=== PATIENT | female | born 1945 | race Caucasian/White ===

== ENCOUNTER 2023-12-10 13:20 | Observation (INO) | payer MEDICARE, OTHER ==
[~2023-12-10] VITALS: Ht 165.1 cm; Wt 72.8 kg
[~2023-12-10 13:20] MED LIST: ALBU8.5H17 IH; CHOL2000 PO; DOXY25TA58 PO; FURO-150 PO; GLIP5TAB23 PO; HYDR-4353 PO; LEVO175T2 PO; LOP25T PO; METF-438 PO; METO-467 PO; POTA-192 PO; SIMV-342 PO; SPIIN INH; TRIA15OI9 TP
[2023-12-10 14:09] LABS: ALBUMIN 3.7 G/DL (3.4-5.0); ANION GAP 11 (8-16); BLOOD UREA NITROGEN 33 MG/DL (7-18); BUN/CREATININE RATIO 19.8 (10.0-20.0); CALCIUM 8.8 MG/DL (8.5-10.1); CHLORIDE 105 MMOL/L (99-107); CREATININE 1.67 MG/DL (0.40-0.90); GLUCOSE 127 MG/DL (70-104); POTASSIUM 4.4 MMOL/L (3.5-5.1); PRO BRAIN NATRIURETIC PEPTIDE 2534 PG/ML (0-450); SODIUM 139 MMOL/L (135-145); TOTAL CARBON DIOXIDE 22.8 MMOL/L (24-32); eCRCL 25 ML/MIN; eGFR 30 ML/MIN
[2023-12-10 15:12] LABS: BASOPHILS # (AUTO) 0.1 X10'3 (0-0.2); BASOPHILS % (AUTO) 1.1 % (0-1); EOSINOPHILS # (AUTO) 0.3 X10'3 (0-0.9); EOSINOPHILS % (AUTO) 3.4 % (0-6); HEMATOCRIT 33.5 % (35.0-45.0); HEMOGLOBIN 10.8 g/dl (12.0-16.0); LYMPHOCYTES # (AUTO) 1.3 X10'3 (1.1-4.8); LYMPHOCYTES % (AUTO) 16.2 % (21-51); MEAN CORPUSCULAR HEMOGLOBIN 26.2 PG (27.0-31.0); MEAN CORPUSCULAR HGB CONC 32.2 g/dL (33.0-36.5); MEAN CORPUSCULAR VOLUME 81.5 FL (78-98); MEAN PLATELET VOLUME 8.2 FL (7.4-10.4); MONOCYTES # (AUTO) 0.6 X10'3 (0-0.9); MONOCYTES % (AUTO) 6.8 % (2-12); NEUTROPHILS # (AUTO) 5.9 X10'3 (1.8-7.7); NEUTROPHILS % (AUTO) 72.5 % (42-75); PLATELET COUNT 308 X10'3 (140-440); RED BLOOD COUNT 4.11 X10'6 (4.20-5.60); RED CELL DISTRIBUTION WIDTH 15.9 % (11.5-14.5); WHITE BLOOD COUNT 8.2 X10'3 (4.5-11.0)
[2023-12-10] MEDS ORDERED: furosemide 10 MG/1 ML 10ml inj IV ONE (16:40)
[2023-12-10] MEDS: ipratropium/albuterol 3ml nebule NEB ONE (17:03)
[2023-12-10 17:04] VITALS: PULSE 73; RESP 18; O2SAT 95
[2023-12-10] MEDS: furosemide 40mg/4ml inj IV ONE (17:31)
[2023-12-10] MEDS: methylPREDNISolone sod succ 125mg/2ml vial IV ONE (17:42)
[2023-12-10] MEDS ORDERED: magnesium Cl slow-release 64mg tablet PO PRN (18:30)
[2023-12-10] MEDS ORDERED: ondansetron/PF 4mg/2ml inj IV PRN (18:30)
[2023-12-10] MEDS ORDERED: potassium Cl 40MEQ/1/2NS 520ml 520 ML IV PRN (18:30)
[2023-12-10] MEDS ORDERED: magnesium 2GM in 50ml NS 50 ML IV PRN (18:30)
[2023-12-10] MEDS ORDERED: potassium Cl 20 mEq SR tablet PO PRN ×2 (18:30)
[2023-12-10] MEDS ORDERED: acetaminophen 325mg tablet PO PRN (18:30)
[2023-12-10] MEDS ORDERED: mag hydrox/Alum hydrox/simeth 30ml oral suspension PO PRN (18:30)
[2023-12-10] MEDS ORDERED: magnesium hydroxide 30ml (MOM) UD suspension PO PRN (18:30)
[2023-12-10] MEDS ORDERED: magnesium 4gm in 100ml NS 100 ML IV PRN (18:30)
[2023-12-10] MEDS ORDERED: albuterol 2.5 MG/3 ML nebule NEB PRN (18:50)
[2023-12-10] MEDS ORDERED: ipratropium/albuterol 3ml nebule NEB PRN (18:50)
[2023-12-10 19:07] LABS: HEMOGLOBIN A1C 5.7 % (4.5-6.2)
[2023-12-10 19:59] LABS: BILIRUBIN,URINE NEGATIVE (Neg); CLARITY,URINE CLEAR (Clear); COLOR,URINE YELLOW (Yellow); GLUCOSE, URINE NEGATIVE (Neg); KETONES,URINE NEGATIVE (Neg); LEUKOCYTE ESTERASE ,URINE NEGATIVE (Neg); NITRITES, URINE NEGATIVE (Neg); OCCULT BLOOD,URINE NEGATIVE (Neg); PROTEIN,URINE NEGATIVE (Neg); UROBILINOGEN,URINE 0.2 E.U/dL (0.2-1.0)
[2023-12-10] MEDS: docusate sod 100mg capsule PO SCH (20:00)
[2023-12-10] MEDS: K and/or MAG REPLACEMENT MC SCH (20:00)
[2023-12-10 20:18] LABS: UA COLLECTION TYPE NON-SPECIFIED
[2023-12-10 21:17] VITALS: PULSE 81; RESP 17; O2SAT 93
[2023-12-10] MEDS ORDERED: DEXTROSE 15 GM of carb/4 tabs (each vial/BOTTLE has 4 tablets) PO PRN ×2 (21:55)
[2023-12-10] MEDS ORDERED: dextrose 50%-water 50ml dispensing syringe IV PRN ×2 (21:55)
[2023-12-10] MEDS ORDERED: glucagon, human recombinant 1mg kit SUBCUT PRN (21:55)
[2023-12-10] MEDS ORDERED: insulin Lispro (HumaLOG) vial - multi-dose SQ SCH (21:55)
[2023-12-10] MEDS: heparin, porcine 5000 units/ml vial SQ SCH (22:54)
[2023-12-11] VITALS (9 sets, daily range): BP systolic 101–142; BP diastolic 37–99; PULSE 69–100; RESP 15–22; TEMP 97.2–98; O2SAT 92–100
[2023-12-11 06:31] LABS: BASOPHILS % (AUTO) 0.6 % (0-1); EOSINOPHILS % (AUTO) 0.1 % (0-6); HEMATOCRIT 32.9 % (35.0-45.0); HEMOGLOBIN 10.8 g/dl (12.0-16.0); LYMPHOCYTES # (AUTO) 0.7 X10'3 (1.1-4.8); LYMPHOCYTES % (AUTO) 18.5 % (21-51); MEAN CORPUSCULAR HEMOGLOBIN 26.4 PG (27.0-31.0); MEAN CORPUSCULAR HGB CONC 32.8 g/dL (33.0-36.5); MEAN CORPUSCULAR VOLUME 80.3 FL (78-98); MEAN PLATELET VOLUME 8.2 FL (7.4-10.4); MONOCYTES # (AUTO) 0.1 X10'3 (0-0.9); MONOCYTES % (AUTO) 2.5 % (2-12); NEUTROPHILS # (AUTO) 2.9 X10'3 (1.8-7.7); NEUTROPHILS % (AUTO) 78.3 % (42-75); PLATELET COUNT 312 X10'3 (140-440); RED BLOOD COUNT 4.09 X10'6 (4.20-5.60); RED CELL DISTRIBUTION WIDTH 15.5 % (11.5-14.5); WHITE BLOOD COUNT 3.7 X10'3 (4.5-11.0)
[2023-12-11 06:55] LABS: ALANINE AMINOTRANSFERASE 13 U/L (12-78); ALBUMIN 3.4 G/DL (3.4-5.0); ALBUMIN/GLOBULIN RATIO 0.8 (1.1-1.5); ALKALINE PHOSPHATASE 89 IU/L (46-116); ANION GAP 11 (8-16); ASPARTATE AMINO TRANSFERASE 16 U/L (10-37); BILIRUBIN,TOTAL 0.4 MG/DL (0.1-1.0); BLOOD UREA NITROGEN 35 MG/DL (7-18); CALCIUM 8.7 MG/DL (8.5-10.1); CHLORIDE 103 MMOL/L (99-107); CHOL/HDL RATIO 2.8 (0.00-4.99); CHOLESTEROL 212 MG/DL (0-200); CREATININE 1.67 MG/DL (0.40-0.90); FREE T4 (FREE THYROXINE) 1.59 NG/DL (0.73-1.40); GLUCOSE 136 MG/DL (70-104); HDL CHOLESTEROL 77 MG/DL (35-60); LDL CHOLESTEROL 102 MG/DL (50-100); PHOSPHORUS 4.7 MG/DL (2.3-4.5); SODIUM 139 MMOL/L (135-145); THYROID STIMULATING HORMONE 0.05 ulU/ml (0.34-4.50); TOTAL CARBON DIOXIDE 24.9 MMOL/L (24-32); TOTAL PROTEIN 7.6 G/DL (6.4-8.2); TRIGLYCERIDES 107 MG/DL (20-135); eCRCL 25 ML/MIN; eGFR 30 ML/MIN
[2023-12-11] MEDS: metoprolol tartrate 50mg tablet PO SCH (07:11)
[2023-12-11] MEDS: levoTHYROXINE 175mcg tablet PO SCH (07:12)
[2023-12-11] MEDS: amLODIPine 5mg tablet PO SCH (07:13)
[2023-12-11] MEDS: furosemide 40mg/4ml inj IV SCH (07:15)
[2023-12-11] MEDS: normal saline 1000ml 1,000 ML IV SCH (20:39)
[2023-12-11] MEDS: metoprolol tartrate 25mg tablet PO SCH (20:47)
[2023-12-11] MEDS: insulin glargine (Lantus) pen - multi-dose SQ SCH (21:00)
[2023-12-12] VITALS (8 sets, daily range): BP systolic 119–149; BP diastolic 44–69; PULSE 67–97; RESP 14–22; TEMP 98–98.5; O2SAT 93–98
[2023-12-12] MEDS: levoTHYROXINE 75mcg tablet PO SCH (07:47)
[2023-12-12 08:06] LABS: BASOPHILS # (AUTO) 0.1 X10'3 (0-0.2); BASOPHILS % (AUTO) 1.1 % (0-1); EOSINOPHILS # (AUTO) 0.1 X10'3 (0-0.9); EOSINOPHILS % (AUTO) 2.2 % (0-6); HEMATOCRIT 34.6 % (35.0-45.0); HEMOGLOBIN 11.2 g/dl (12.0-16.0); LYMPHOCYTES # (AUTO) 1.7 X10'3 (1.1-4.8); LYMPHOCYTES % (AUTO) 28.1 % (21-51); MEAN CORPUSCULAR HEMOGLOBIN 26.2 PG (27.0-31.0); MEAN CORPUSCULAR HGB CONC 32.3 g/dL (33.0-36.5); MEAN CORPUSCULAR VOLUME 81.2 FL (78-98); MEAN PLATELET VOLUME 8.6 FL (7.4-10.4); MONOCYTES # (AUTO) 0.6 X10'3 (0-0.9); MONOCYTES % (AUTO) 10.5 % (2-12); NEUTROPHILS # (AUTO) 3.6 X10'3 (1.8-7.7); NEUTROPHILS % (AUTO) 58.1 % (42-75); PLATELET COUNT 347 X10'3 (140-440); RED BLOOD COUNT 4.26 X10'6 (4.20-5.60); RED CELL DISTRIBUTION WIDTH 15.9 % (11.5-14.5); WHITE BLOOD COUNT 6.2 X10'3 (4.5-11.0)
[2023-12-12 08:34] LABS: ALANINE AMINOTRANSFERASE 14 U/L (12-78); ALBUMIN 3.7 G/DL (3.4-5.0); ALBUMIN/GLOBULIN RATIO 0.9 (1.1-1.5); ALKALINE PHOSPHATASE 88 IU/L (46-116); ANION GAP 10 (8-16); ASPARTATE AMINO TRANSFERASE 17 U/L (10-37); BILIRUBIN,TOTAL 0.5 MG/DL (0.1-1.0); BLOOD UREA NITROGEN 45 MG/DL (7-18); BUN/CREATININE RATIO 25.3 (10.0-20.0); CALCIUM 8.5 MG/DL (8.5-10.1); CHLORIDE 104 MMOL/L (99-107); CREATININE 1.78 MG/DL (0.40-0.90); GLUCOSE 85 MG/DL (70-104); MAGNESIUM 2.1 MG/DL (1.5-2.4); PHOSPHORUS 3.8 MG/DL (2.3-4.5); POTASSIUM 3.7 MMOL/L (3.5-5.1); SODIUM 140 MMOL/L (135-145); TOTAL CARBON DIOXIDE 25.7 MMOL/L (24-32); TOTAL PROTEIN 7.7 G/DL (6.4-8.2); eCRCL 23 ML/MIN; eGFR 27 ML/MIN
[2023-12-12] MEDS: LORazepam 1 MG tablet PO ONE (10:27)
[2023-12-12] MEDS ORDERED: LEVO75TA7 PO (13:47)
[2023-12-12] MEDS ORDERED: LOP25T PO (13:47)
== END 2023-12-12 14:18 | disposition home health service (06) ==
LOC: ER 13:20 → ED HOLD 18:53 → EDBEDREQ 22:47 → ORTHO 4S 23:31
PROVIDERS: ADMIT Family Medicine; ATTEND Family Medicine
DX: R55 Syncope and collapse (principal); Z20.822 Contact with and (suspected) exposure to COVID-19; N17.9 Acute kidney failure, unspecified; I11.0 Hypertensive heart disease with heart failure; I50.32 Chronic diastolic (congestive) heart failure; E03.9 Hypothyroidism, unspecified; E11.9 Type 2 diabetes mellitus without complications; J44.9 Chronic obstructive pulmonary disease, unspecified; I49.3 Ventricular premature depolarization; E05.00 Thyrotoxicosis with diffuse goiter without thyrotoxic crisis or storm; Z90.49 Acquired absence of other specified parts of digestive tract; Z90.710 Acquired absence of both cervix and uterus; Z79.899 Other long term (current) drug therapy
CPT/HCPCS: 36415; 70450; 70544; 70547; 70551; 71045; 80048; 80053; 80061; 81003; 82948; 83036; 83735; 83880; 84100; 84145; 84439; 84443; 84484; 85025; 87081; 87502; 87503; 87811; 93005; 94760; 96361; 96372; 96374; 96375; 96376; 97116; 97161; 97530; 99285; G0378; J1644; J1940; J2930; J7030; J1815

== ENCOUNTER 2025-04-03 15:20 | Emergency (ER) | payer MEDICARE, OTHER ==
[~2025-04-03] VITALS: Ht 162.6 cm; Wt 62.5 kg
[~2025-04-03 15:20] MED LIST changes: -LEVO175T2 PO; +LEVO75TA7 PO; -METO-467 PO
[2025-04-03 15:21] VITALS: TEMP 98.5
[2025-04-03] MEDS: LIDOcaine 1% W/epiNEPHrine 1:100,000 20ml vial SQ ONE (15:36)
--- NOTE | 2025-04-03 15:36 | Physician Documentation ---
History of Present Illness ~ Chief Complaint: Mechanical Fall Stated Complaint: FALL Time Seen by MD: 15:22 Primary Medical Doctor: SHERLY; JEN WARE GRP Source: patient, EMS, EMS notes reviewed Mode of Arrival: EMS Exam Limitations: other (DEMENTIA) HPI Chief Complaint: Fall, head injury Caveat: Dementia Independent Historians: Paramedics History of Present Illness: Patient is a 80-year-old woman who was brought in from home by paramedics after having fallen and hitting her head on the cement. Patient was walking into the house with groceries when she missed the last step falling onto her right forehead. Patient denies any loss of consciousness. Patient would not tolerate a C collar prior to arrival. However she is not complaining of any neck pain. Patient denies any nausea or vomiting. Patient complains of the moderate headache. Patient denies any pain in her extremities or hips. Patient denies passing out or losing consciousness. Patient denies being on blood thinners. Review of systems: All systems were reviewed and are negative except for what is indicated in the history of present illness. Past Medical History: Dementia, HTN, COPD, CHF, anemia, Graves disease Past Surgical History: Noncontributory Social History: , no tobacco use, no alcohol use, no drug use Medications: Reviewed as documented Nursing Notes Allergies: Reviewed as documented in Nursing Notes Tetanus within 5 Years?: No Medication Reconciliation Allergies: Coded Allergies: No Known Allergies (Unverified , 09/22/14) Scheduled Albuterol Sulfate (Proair Hfa), 2 PUFFS IH QID, (Reported) Cholecalciferol (Vitamin D3) (Vitamin D), 1 CAP PO DAILY, (Reported) Doxylamine Succinate (Unisom), 1 TAB PO HS, (Reported) Furosemide (Lasix), 20 MG PO DAILY Glipizide (Glipizide), 7.5 MG PO DAILY, (Reported) Hydrocodone Bit/Acetaminophen ([place] 10-325 Tablet), 1 TABLET PO BID, (Reported) Levothyroxine Sodium (Levothyroxine Sodium), 150 MCG PO DAILY@07 Metformin HCl (Metformin HCl), 1 TABLET PO BID, (Reported) Metoprolol Tartrate* (Lopressor tablet*), 25 MG PO BID Potassium Chloride (Klor-Con), 1 TABLET PO DAILY Simvastatin (Zocor), 1 TABLET PO DAILY, (Reported) Tiotropium [place] (SPIRIVA inhaler), 1 CAP INH DAILY, (Reported) Scheduled PRN Triamcinolone Acetonide (Triamcinolone Acetonide), 1 APPLIC TP PRN PRN for itching, (Reported) Past Medical History Past Medical History: Congestive Heart Failure, Hypertension, COPD, Pneumonia, Anemia, Diabetes, Graves' Disease, Cellulitis Past Surgical History: appendectomy, cholecystectomy, hysterectomy Patient History: ([place]) Myocardial infarction FATHER, , Age: 50's - 60, Cause: Heart attack, Onset:50's - 60 Cardiac arrest FATHER, , Age: 50's - 60, Cause: Heart attack, Onset:50's - 60 No Family History of: (CVA) Cerebrovascular accident Other Past Family History: NONE Alcohol Use: None Drug Use: none Lives with: Spouse Lives In: Home Review of Systems All Other Systems at this time: Reviewed and Negative ROS Patient denies any other acute symptoms other than above. All other systems are negative Physical Exam Vital Signs: RN Vital Signs have been reviewed: Yes, Temperature: 98.5, Source: Temporal, Heart Rate: 87, Respiratory Rate: 17, BP: 143/63, Pulse Oximetry: 95, Weight: 62.510 Oxygen Flow Rate: 2.0 Pulse Oximetry Reflects: adequate oxygenation Physical Exam General Appearance: Mild distress HEENT: Normal OP, moist oral mucosa, PERRL, EOMI, macerated irregular full- thickness laceration to the right forehead, bleeding controlled, no foreign bodies identified, swelling and ecchymosis down around the eye. No facial bony tenderness Neck: supple, normal ROM, trachea midline, no step-offs, no midline tenderness Pulmonary: No respiratory distress, CTA, BS equal Cardiac: RRR, no murmur, rub or gallop, GI: nondistended, soft, nontender, normal bowel sounds, no guarding, no rebound Extremities: normal ROM, chronic 1+ nonpitting lower extremity edema, non- tender, extremities appear atraumatic Skin: intact, dry, warm, no rashes, skin over the legs is dry and flaky and pink Neuro: AAOx3, speech is clear, no focal motor weakness Psych: normal affect, good eye contact, no apparent hallucination, normal speech Procedures Procedures Complex Laceration Repair by Ashkan Marcelo NP Complex stellate laceration measuring 6 cm total to right forehead with galea involvement. Procedure explained and verbal consent obtained. Area was thoroughly irrigated by nursing staff using sterile saline. No foreign body was appreciated. Adequate anesthesia was obtained utilizing 7 mL of 1% lidocaine with epinephrine infiltrated locally. The area was prepped and draped. A 1 cm round perforation of the galea was partially approximated utilizing 4 simple interrupted subcutaneous sutures utilizing 5-0 Vicryl Skin was well approximated utilizing 9 simple interrupted cutaneous sutures utilizing 5-0 Ethilon Patient tolerated procedure well with no complications Progress Results/Orders Results/Orders Orders - CASSY ELENA MD Urinalysis, Cult If Indicated (04/03/25 15:23) Ct Cervical Spine (04/03/25 15:23) Ct Facial Bones/Soft Tissue (04/03/25 15:23) Ct Head (04/03/25 15:23) Completed Orders - CASSY ELENA MD Cbc/Diff (04/03/25 15:23) Pt Inr (04/03/25 15:23) PTT (04/03/25 15:23) Ct Cervical Spine (04/03/25 15:23) Ct Facial Bones/Soft Tissue (04/03/25 15:23) Ct Head (04/03/25 15:23) BMP (04/03/25 15:23) Lidocaine 1% W/Epi 1:100,000 (Xylocaine (04/03/25 15:30) Vital Signs 04/03/25 04/03/25 04/03/25 15:21 15:29 16:17 Temp 98.5 Pulse 87 68 Resp 17 17 17 B/P (MAP) 143/63 141/68 (92) Pulse Ox 95 95 O2 Flow Rate 2.0 1.0 Laboratory Tests Test 04/03/25 15:25 04/03/25 15:50 Sodium Level 141 Potassium Level 4.3 Chloride Level 106 Carbon Dioxide Level 22.0 L Anion Gap 13 Blood Urea Nitrogen 33 H Creatinine 1.96 H Estimated GFR/1.73 m2 24 BUN/Creatinine Ratio 16.8 Glucose Level 135 H Calcium Level 8.9 Albumin 3.3 L Chemistry Comments White Blood Count 9.0 Red Blood Count 3.46 L Hemoglobin 8.8 L Hematocrit 27.1 L Mean Corpuscular Volume 78.3 Mean Corpuscular Hemoglobin 25.4 L Mean Corpuscular Hemoglobin Concent 32.4 L Red Cell Distribution Width 18.7 H Platelet Count 459 H Mean Platelet Volume 7.3 L Neutrophils (%) (Auto) 71.2 Lymphocytes (%) (Auto) 17.3 L Monocytes (%) (Auto) 7.2 Eosinophils (%) (Auto) 3.4 Basophils (%) (Auto) 0.9 Neutrophils # (Auto) 6.4 Lymphocytes # (Auto) 1.5 Monocytes # (Auto) 0.6 Eosinophils # (Auto) 0.3 Basophils # (Auto) 0.1 CBC Comment Platelet Estimate Increased Red Blood Cell Morphology Perf Polychromasia 1+ Hypochromasia 1+ Basophilic Stippling Anisocytosis 2+ Microcytosis 1+ Prothrombin Time 10.2 INR International Normalized Ratio 1.0 Activated Partial Thromboplast Time 28 Coagulation Comments Medical Decision Making Findings Differential diagnosis includes but is not limited to: Medic brain injury, minor closed head injury, facial laceration, facial fractures, cervical fracture, extremity injuries, contusions, fractures Head CT without IV contrast, indication: Head trauma Impression: 1. Right frontal scalp edema and laceration without underlying cranial fracture. 2. Chronic ischemic changes without evidence of acute intracranial process. 3. Empty sella incidentally noted. CT cervical spine without IV contrast, indication: Head trauma Impression: 1. No fracture of the cervical spine. 2. 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 Consider follow-up noncontrast MRI of the cervical spine for better characterization on an outpatient basis, as there may be mass effect on the cervical spinal cord at the C3-C4 level. 3. Multilevel significant neural foraminal stenosis as detailed above. This would also be better characterized with noncontrast MRI. 4. Carotid atherosclerosis. 5. Ground-glass opacity in the right lung apex, not fully imaged here. Facial bones CT without IV contrast, indication: Facial/head trauma Impression: Limited examination secondary to patient motion artifact. No acute facial fractures. Laboratory data independent interpretation: CBC: Moderate anemia with a hemoglobin of 8.8 CMP: Chronic kidney disease with a creatinine of 1.96 Urinalysis: Emergency department course/medical decision-making: Patient presents after having fallen at home onto her head hitting the pavement. Patient's mental status appears to be at baseline. Patient is neurologically intact. Findings on the cervical CT of the C-spine are incidental. PATIENT TO FOLLOW UP WITH YOUR PRIMARY CARE DOCTOR FOR THESE FINDINGS. PATIENT HAS NOT BEEN HAVING ANY ACUTE NEUROLOGICAL SYMPTOMS. Plain CT OF THE HEAD is showing no evidence of intracranial hemorrhage or traumatic brain injury. Forehead laceration is repaired without complication. Patient to follow up with her primary care doctor or ER for suture removal in 10-12 days. Consultation/communications: Departure Time of Disposition: 17:32 Disposition: 01 HOME / SELF CARE / HOMELESS Impression: Primary Impression: Closed head injury Qualified Codes: S09.90XA - Unspecified injury of head, initial encounter Additional Impression: 6 cm forehead, complex repair Condition: Improved Discharge Instructions: Facial Laceration, [id number], Fall Prevention in the Home, Adult, [id number] Additional Instructions: APPLY COLD COMPRESSES/ICE PACKS TO THE AREAS OF INJURY. FOLLOW UP WITH YOUR PRIMARY CARE DOCTOR OR RETURN TO THE ER FOR YOUR SUTURES TO BE REMOVED IN 10-12 DAYS. RETURN TO THE ER IF YOU HAVE ANY NEW OR ACUTE SYMPTOMS. Education Educated: Patient Educated regarding: diagnosis, treatment Signature Scribe Signature: No scribe Attestation: No scribe CASSY ELENA MD Apr 03, 2025 15:36 ASHKAN MARCELO Apr 03, 2025 17:25
[2025-04-03 15:41] LABS: CREATININE 1.96 MG/DL (0.40-0.90); TOTAL CARBON DIOXIDE 22.0 MMOL/L (24-32); eCRCL 19 ML/MIN; eGFR 24 ML/MIN
--- NOTE | 2025-04-03 15:53 | RADIOLOGY REPORT ---
EXAM: CT CT HEAD HISTORY: head trauma COMPARISON: MR MRI HEAD on DOS: 12/12/23, CT CT HEAD on DOS: 12/10/23 TECHNIQUE: Noncontrast axial CT images of the head were performed. Sagittal and coronal reformatted i mages were obtained. This CT exam was performed using 1 or more of the following dose reduction techn iques: Automated exposure control, adjustment of the mA and/or kv according to patient size, or the u se of iterative reconstruction techniques. Radiation Dose: CTDI volume is 52.82 mGy. Dose-length product is 887.83 mGy*cm FINDINGS: There is moderate to severe decreased attenuation in the periventricular and bicerebral white matter. No intracranial hemorrhage, mass, midline shift, hydrocephalus, or evidence of acute large vessel in farct. The sella is empty. The optic globes are proptotic, stable. The partially-visualized paranasa l sinuses are clear. The bilateral mastoid air cells and middle ear spaces are clear. No cranial frac ture. There is right frontal supraorbital scalp edema and laceration. IMPRESSION: 1. Right frontal scalp edema and laceration without underlying cranial fracture. 2. Chronic ischemic changes without evidence of acute intracranial process. 3. Empty sella incidentally noted.
[2025-04-03 16:01] LABS: MEAN PLATELET VOLUME 7.3 FL (7.4-10.4); RED CELL DISTRIBUTION WIDTH 18.7 % (11.5-14.5)
[2025-04-03 16:17] VITALS: BP 141/68; PULSE 68; RESP 17; O2SAT 95
[2025-04-03 16:19] LABS: PLATELET ESTIMATE INCREASED
[2025-04-03 16:22] LABS: APTT 28 SECONDS (22-32); INR 1.0 INR
--- NOTE | 2025-04-03 16:45 | RADIOLOGY REPORT ---
EXAM: CT CT CERVICAL SPINE INDICATION: head trauma EXAM DATE: 04/03/2025 03:37 PM COMPARISON: None TECHNIQUE: Noncontrast axial CT images of the cervical spine were performed. Sagittal and coronal ref ormatted images were obtained. Radiation optimization: All CT scans at this facility use at least one of these dose optimization techniques: automated exposure control mA and/or kV adjustment per patie nt size (includes targeted exams where dose is matched to clinical indication) or iterative reconstr uction. Radiation Dose Information: CT Dose: CTDI volume is 22.93 mGy. Dose-length product is 398.42 mGy*cm FINDINGS: No fracture or listhesis of the cervical spine. The cervical spinal canal is congenitally narrow. The re is moderate degenerative disc disease and advanced facet arthropathy. There is fsyb-rx-hhgbjsfe sp inal canal stenosis at C3-C4. There is mild spinal canal stenosis at other levels. There is significa nt neural foraminal stenosis at C2-C3 on the left, C3-C4 bilaterally, C4-C5 on the right, C6-C7 on th e right. There are thick atherosclerotic calcifications of the bilateral carotid bulbs. There is a le ft thyroid calcified nodule. There is mild patchy ground-glass opacity in the right lung apex, not fu lly imaged here. IMPRESSION: 1. No fracture of the cervical spine. 2. 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 Consider follow-up noncontrast MRI of the cervical spine for better characterization on an outpat ient basis, as there may be mass effect on the cervical spinal cord at the C3-C4 level. 3. Multilevel significant neural foraminal stenosis as detailed above. This would also be better hardik acterized with noncontrast MRI. 4. Carotid atherosclerosis. 5. Ground-glass opacity in the right lung apex, not fully imaged here.
--- NOTE | 2025-04-03 17:13 | RADIOLOGY REPORT ---
HISTORY: head trauma TECHNIQUE: Nonenhanced axial images through the facial bones with coronal and sagittal MPR. Radiation Dose Information: CT Dose: CTDI volume is 55 mGy. Dose-length product is 974 mGy*cm COMPARISON: None FINDINGS: Mandible: Unremarkable Maxilla: Unremarkable Zygomatic arches: Unremarkable Nasal bone: Unremarkable Orbits: Unremarkable Sinuses: Clear Facial swelling: None IMPRESSION: Limited examination secondary to patient motion artifact. No acute facial fractures. Radiation optimization: All CT scans at this facility use at least one of these dose optimization sumeet hniques: automated exposure control mA and/or kV adjustment per patient size (includes targeted exam s where dose is matched to clinical indication) or iterative reconstruction.
== END 2025-04-03 20:51 | disposition home or self-care (01) ==
LOC: ER 15:20
DX: S01.81XA Laceration without foreign body of other part of head, initial encounter (principal); F03.90 Unspecified dementia, unspecified severity, without behavioral disturbance, psychotic disturbance, mood disturbance, and anxiety; I13.0 Hypertensive heart and chronic kidney disease with heart failure and stage 1 through stage 4 chronic kidney disease, or unspecified chronic kidney disease; E11.22 Type 2 diabetes mellitus with diabetic chronic kidney disease; N18.9 Chronic kidney disease, unspecified; I50.9 Heart failure, unspecified; J44.9 Chronic obstructive pulmonary disease, unspecified; Z90.710 Acquired absence of both cervix and uterus; W10.9XXA Fall (on) (from) unspecified stairs and steps, initial encounter; Y92.009 Unspecified place in unspecified non-institutional (private) residence as the place of occurrence of the external cause; Y93.01 Activity, walking, marching and hiking; Y99.8 Other external cause status
CPT/HCPCS: 12014; 36415; 70450; 70486; 72125; 80048; 85025; 85610; 85730; 99284; A6402; J7030; Z7610; 85008; A6449

== ENCOUNTER 2025-08-27 23:31 | Inpatient (IN) | payer MEDICARE, OTHER ==
[~2025-08-27] VITALS: Ht 167.6 cm; Wt 83.0 kg
--- NOTE | 2025-08-27 23:51 | ELECTROCARDIOGRAPH REPORT ---
[facility] Test Date: 2025-08-27 Test Time: 23:49:29 Pat Name: BEATRIZ BANKS Department: [facility]- Patient ID: [facility]-[id number] Room: Gender: F Iron Caster: : 1945 Requested By: EMERSON MCKENNA Order Number: [id number] Reading MD: Dr. Emerson Mckenna Measurements Intervals [place] Rate: 87 P: 119 MA: 172 QRS: 165 QRSD: 106 T: -10 QT: 381 QTc: 459 Interpretive Statements Sinus rhythm Low voltage, precordial leads Probable right ventricular hypertrophy Borderline T abnormalities, diffuse leads Baseline wander in lead(s) I,V1 Electronically Signed On 08-28-2025 1:27:[address] Emerson Mckenna Please click the below link to view image of tracing.
[2025-08-28] VITALS (24 sets, daily range): BP systolic 103–125; BP diastolic 41–63; PULSE 87–103; RESP 15–25; TEMP 96.6–98.2; O2SAT 90–98
--- NOTE | 2025-08-28 01:00 | RADIOLOGY REPORT ---
CHEST RADIOGRAPH Indication: CHEST PAIN Technique: Single frontal view of the chest was obtained COMPARISON: DI CHEST,SINGLE VIEW on DOS: 12/10/23 FINDINGS: Cardiac silhouette is enlarged. Mild prominence of the pulmonary vasculature. No dense focal airspace disease. No significant pleural effusions. Bones and soft tissues demonstrate no significant abnormality. IMPRESSION: Cardiomegaly with pulmonary venous congestion.
[2025-08-28 01:01] LABS: MEAN PLATELET VOLUME 7.3 FL (7.4-10.4); RED CELL DISTRIBUTION WIDTH 22.0 % (11.5-14.5)
[2025-08-28] MEDS: diazepam inj 5 MG/ML inj. IV ONE ×2 (01:07→18:44)
[2025-08-28 01:23] LABS: CREATININE 3.66 MG/DL (0.40-0.90); TOTAL CARBON DIOXIDE 18.3 MMOL/L (24-32); eCRCL 11 ML/MIN; eGFR 12 ML/MIN
[2025-08-28 01:30] LABS: APTT 32 SECONDS (22-32); INR 1.0 INR
--- NOTE | 2025-08-28 01:37 | Physician Documentation ---
History of Present Illness ~ Chief Complaint: Shortness of Breath Stated Complaint: SOB Time Seen by MD: 23:42 OK to notify your PCP?: Yes Primary Medical Doctor: SHERLY; JEN WARE GRP Source: patient, RN/MD, EMS, RN notes reviewed, EMS notes reviewed, old records Mode of Arrival: EMS Exam Limitations: no limitations HPI This patient is a full code. History is very limited patient states she is short of breath and has been occurring for more than a day otherwise history is obtained from EMS. Has been was contacted and confirmed that she wants everything done including compressions and intubation. Patient also has end- stage dementia. Review of medical records shows the patient has diuretics albuterol pain medications thyroid medications beta blockers potassium supplementation and Kenalog ointment for her skin most likely she has no reports of cellulitis her lower extremities are weeping with multiple ulcers. She is having short shallow breath sounds moaning in pain complaining of shortness of breath. Denies chest pain. Medication Reconciliation Allergies: Coded Allergies: Sulfa (Sulfonamide Antibiotics) (Verified Allergy, Unknown, 08/28/25) per EMS sulfamethoxazole (Verified Allergy, Unknown, 08/28/25) trimethoprim (Verified Allergy, Unknown, 08/28/25) Scheduled Albuterol Sulfate (Proair Hfa), 2 PUFFS IH QID, (Reported) Cholecalciferol (Vitamin D3) (Vitamin D), 1 CAP PO DAILY, (Reported) Doxylamine Succinate (Unisom), 1 TAB PO HS, (Reported) Furosemide (Lasix), 20 MG PO DAILY Glipizide (Glipizide), 7.5 MG PO DAILY, (Reported) Hydrocodone Bit/Acetaminophen ([place] 10-325 Tablet), 1 TABLET PO BID, (Reported) Levothyroxine Sodium (Levothyroxine Sodium), 150 MCG PO DAILY@07 Metformin HCl (Metformin HCl), 1 TABLET PO BID, (Reported) Metoprolol Tartrate* (Lopressor tablet*), 25 MG PO BID Potassium Chloride (Klor-Con), 1 TABLET PO DAILY Simvastatin (Zocor), 1 TABLET PO DAILY, (Reported) Tiotropium [place] (SPIRIVA inhaler), 1 CAP INH DAILY, (Reported) Scheduled PRN Triamcinolone Acetonide (Triamcinolone Acetonide), 1 APPLIC TP PRN PRN for itching, (Reported) Past Medical History Past Medical History: Congestive Heart Failure, Hypertension, COPD, Pneumonia, Anemia, Diabetes, Graves' Disease, Cellulitis Past Surgical History: appendectomy, cholecystectomy, hysterectomy Patient History: (CA) Myocardial infarction FATHER, , Age: 50's - 60, Cause: Heart attack, Onset:50's - 60 Cardiac arrest FATHER, , Age: 50's - 60, Cause: Heart attack, Onset:50's - 60 No Family History of: (CVA) Cerebrovascular accident Other Past Family History: NONE Smoking Status: Current every day smoker Alcohol Use: None Drug Use: none Lives with: Spouse Lives In: Home Review of Systems ROS Unable to evaluate patient's demented Physical Exam Vital Signs: RN Vital Signs have been reviewed: Yes, Temperature: 97.9, Source: Oral, Heart Rate: 89, Respiratory Rate: 20, BP: 119/55, Pulse Oximetry: 90, Weight: 83.000 Oxygen Flow Rate: 12.0 Physical Exam General: The patient is well developed, well nourished, nontoxic appearing and is in mild acute distress. Anxious calling for help Skin: [place], warm and dry with no rashes. HEENT: Head was normocephalic and atraumatic. Eyes - pupils equal, round, reactive to light and accommodation. Extraocular movements were intact. Conjunctivae were nonicteric. The mouth and oropharynx were clear with dry mucous membranes. There were no pharyngeal exudates or erythema. Neck: Supple and nontender. There was no jugular venous distention, lymphadenopathy, thyromegaly or masses. Chest: Clear to auscultation bilaterally without wheezes, rales or rhonchi. No accessory muscle use. No dullness to percussion. Decreased breath sounds increased respiratory rate Heart: Rate regular and rhythmic. S1, S2. No murmurs. Palpation of the chest wall was normal. No rubs or thrills. Abdomen: Soft, nontender and nondistended. Positive bowel sounds. No guarding or rebound. No hepatosplenomegaly or palpable masses. Extremities: No cyanosis, clubbing or 1+ edema. The patient moves all extremities. Pulses were equal and symmetric. Bilateral lower extremities are red warm to touch multiple ulcerations throughout her leg weeping foul odor. Some green discharge as well Neurologic: Motor sensory grossly intact Psychologic: The patient was oriented to person, place and time. The patient demonstrated poor judgement and insight. Baseline dementia Progress Results/Orders Results/Orders Orders - EMERSON OSCAR MD Electrocardiogram (08/27/25 ) Chest,Single View (08/28/25 00:31) Urinalysis, Cult If Indicated (08/28/25 00:32) Culture Blood (08/28/25 00:32) Monitor (08/28/25 00:) Oxygen (08/28/25:) Hs Troponin I W Calculations (08/28/25 02:32) Normal Saline 1000ml (0.9% Sodium Chlori (08/28/25:25) Sodium Bicarbonate 1meq/Ml Syr (Sodium B (08/28/25:30) Observation Status Start (08/28/25 02:29) Calcium Gluconate 2gm/100ml Ns (08/28/25 02:30) Svn Treatment (08/28/25 02:) Albuterol 2.5mg/3ml Nebule (Proventil 2. (08/28/25 02:30) Completed Orders - EMERSON OSCAR MD Electrocardiogram (08/27/25 ) Chest,Single View (08/28/25 00:31) Cbc/Diff (08/28/25 00:32) MG (08/28/25 00:32) Pt Inr (08/28/25 00:32) PTT (08/28/25 00:32) PBNP (08/28/25 00:32) BMP (08/28/25 00:32) Hs Troponin I W Calculations (08/28/25 00:32) Lacticsepsis (08/28/25 00:32) Diazepam Inj (Valium Inj) (08/28/25 00:45) D-Dimer (08/28/25 00:46) Ceftriaxone/I4h-Myftoxsy 1gm (Rocephin 1 (08/28/25:25) Aspirin 81mg Chew Tablet (Aspirin 81mg C (08/28/25 02:30) Dextrose 50%-Water (Dextrose 50%-Water S (08/28/25 02:30) Insulin Regular, Human (Humulin R 10 Uni (08/28/25 02:30) Medications Received in ER Medications (Trade) Dose Ordered Sig/Senthil Route PRN Reason Start Time Stop Time Status Last Admin Dose Admin (Valium inj) 2.5 mg ONCE ONCE IV 08/28/25 00:45 08/28/25 00:46 DC 08/28/25 01:07 2.5 MG Sodium Chloride 1,000 ml @ 200 mls/hr Q5H ONCE IV 08/28/25 01:25 08/28/25 06:24 08/28/25 02:04 200 MLS/HR Ceftriaxone Sodium 50 ml @ 100 mls/hr ONCE ONCE IV 08/28/25 01:25 08/28/25 01:54 DC 08/28/25 02:03 100 MLS/HR Vital Signs 08/27/25 08/28/25 08/28/25 08/28/25 23:51 00:02 01:07 02:06 Temp 97.9 Pulse 89 90 Resp 23 22 20 22 B/P (MAP) 119/55 111/42 (65) Pulse Ox 90 95 O2 Flow Rate 12.0 4.0 Laboratory Tests Test 08/28/25 00:54 White Blood Count 11.3 H Red Blood Count 2.91 L Hemoglobin 7.6 L Hematocrit 23.6 L Mean Corpuscular Volume 81.0 Mean Corpuscular Hemoglobin 26.2 L Mean Corpuscular Hemoglobin Concent 32.4 L Red Cell Distribution Width 22.0 H Platelet Count 543 H Mean Platelet Volume 7.3 L Neutrophils (%) (Auto) 84.6 H Lymphocytes (%) (Auto) 8.9 L Monocytes (%) (Auto) 4.6 Eosinophils (%) (Auto) 1.6 Basophils (%) (Auto) 0.3 Neutrophils # (Auto) 9.5 H Lymphocytes # (Auto) 1.0 L Monocytes # (Auto) 0.5 Eosinophils # (Auto) 0.2 Basophils # (Auto) 0.0 CBC Comment Platelet Estimate Increased Red Blood Cell Morphology Perf Basophilic Stippling Anisocytosis 3+ Prothrombin Time 10.4 INR International Normalized Ratio 1.0 Activated Partial Thromboplast Time 32 D-Dimer 4.15 H D-Dimer Comment Coagulation Comments Sodium Level 138 Potassium Level 6.1 *H Chloride Level 106 Carbon Dioxide Level 18.3 L Anion Gap 14 Blood Urea Nitrogen 84 H Creatinine 3.66 H Estimated GFR/1.73 m2 12 BUN/Creatinine Ratio 23.0 H Glucose Level 138 H Lactic Acid Level 0.9 Calcium Level 8.5 Magnesium Level 2.5 H Troponin I High Sensitivity 70 *H Pro-B-Type Natriuretic Peptide > 81241 H Albumin 2.9 L Chemistry Comments Re-Evaluation Re-evaluation : Re-Evaluation: Improved, Unchanged Progress Patient was seen and examined. Patient has been crying for help. Patient was given Valium 2.5 mg which heavily sedated the patient. She was calm for a bit but then later started to cry once again. For her lower extremity she received Rocephin afterwards the patient was given aspirin for her elevated troponin pulmonary embolism was considered echocardiogram was ordered patient was found to have hyperkalemia with a potassium of 6.1. Patient received dextrose insulin sodium bicarb calcium gluconate as well as albuterol. Albuterol was also helpful because she has a history of COPD although I do not appreciate any wheezing her chief complaint of shortness of breath breathing treatment did help a bit. Patient's laboratory work shows a slight leukocytosis with a WBC of 11.3 , hemoglobin 7 hematocrit 23 there was some anemia as well. Platelets 543. 84% neutrophils with a left shift. Chemistry [place] [address] consistent with her heart failure she has malnutrition with albumin of 2.9. Fir st troponin is 70. Magnesium was high at 2.5. Calcium 8.5 lactic acid is reassuring at 0.9. However her sodium is 138 potassium 6.1 elevated requiring emergent management chloride 106 CO2 shows some acidosis with a level of 18.3 creatinine 3.66 BUN 84 which is much higher than baseline. Glucose is 136. Patient's D-dimer unfortunately is 4.15 making D-dimer high in the differential. I then contacted the hospitalist who kindly agreed to admit the patient for further workup and care. Patient is on 3 L home oxygen Continuous school lunch monitor interpretation shows normal sinus rhythm heart rate 90s, no ectopy, normal, my interpretation. Pulse oximetry monitor interpretation shows some hypoxia with 95% on 4 L oxygen, abnormal, my interpretation. EKG/XRAY/CT/US/VASC/MRI EKG : Intepreting Monitor?: Yes Additional Comment [facility] Test Date: 2025-08-27 Test Time: 23:49:29 Pat Name: BEATRIZ BANKS Department: [facility]- Patient ID: [facility]-[id number] Room: Gender: F Letter Of Credit Clerk: : 1945 Requested By: EMERSON OSCAR Order Number: [id number] Reading MD: Dr. Emerson Oscar Measurements Intervals [place] Rate: 87 P: 119 PA: 172 QRS: 165 QRSD: 106 T: -10 QT: 381 QTc: 459 Interpretive Statements Sinus rhythm Low voltage, precordial leads Probable right ventricular hypertrophy Borderline T abnormalities, diffuse leads Baseline wander in lead(s) I,V1 Electronically Signed On 08-28-2025 1:27:[address] Emerson Oscar Please click the below link to view image of tracing. Chest X-Ray : Additional Comments CHEST RADIOGRAPH Indication: CHEST PAIN Technique: Single frontal view of the chest was obtained COMPARISON: DI CHEST,SINGLE VIEW on DOS: 12/10/23 FINDINGS: Cardiac silhouette is enlarged. Mild prominence of the pulmonary vasculature. No dense focal airspace disease. No significant pleural effusions. Bones and soft tissues demonstrate no significant abnormality. IMPRESSION: Cardiomegaly with pulmonary venous congestion. Heart Score: Heart Score Response (Comments) Value History Slightly Suspicious 0 EKG Repolarization Disturb 1 Age >65 2 Risk Factors 1 or 2 risk factors 1 Troponin 1-2 x's Normal limit 1 Total 5 Medical Decision Making Additional information obtaine: old records Findings Patient with multiple medical problems, sepsis, kidney problems such as acute renal failure, myocardial infarction, heart failure, heart strain, pulmonary embolism DVT, dementia, anxiety were all considered Heart Score: 5 Differential Dx:Considerations: Include: anxiety, asthma, bronchitis, cardiogenic shock, CHF, COPD, dysrhythmia, hypertension, accelerated, hyperventilation, hyponatremia, myocardial infarction, panic attack, pneumonia, pneumonitis, pneumothorax, PSVT, pulmonary embolism, respiratory distress, respiratory failure, sinusitis, upper resp. infection, other Departure Impression: Primary Impression: COPD exacerbation Additional Impressions: Dyspnea Qualified Codes: R06.02 - Shortness of breath Non-ST elevation CA (NSTEMI) Cellulitis of lower extremity Qualified Codes: L03.119 - Cellulitis of unspecified part of limb Hyperkalemia Acute renal failure Qualified Codes: N17.9 - Acute kidney failure, unspecified Acute on chronic heart failure Qualified Codes: I50.43 - Acute on chronic combined systolic (congestive) and diastolic (congestive) heart failure Condition: Guarded Referrals: NO PRIMARY CARE PROVIDER (PCP) Education Educated: Patient Educated regarding: diagnosis, prognosis Critical Care Note Total Time (mins): 30 Critical Care Note The very real possibility of a deterioration of this patient's condition required the highest level of my preparedness for sudden, emergent intervention. I provided critical care services, which included medication orders, frequent reevaluations of the patient's condition and response to treatment, ordering and reviewing test results, and discussing the case with various consultants. Excludes time spent performing separately billable procedures. The critical care time associated with the care of the patient was. 30 minutes Signature Scribe Signature: . Attestation: The note accurately reflects work and decisions made by me.Emerson Oscar MD 08/28/25 01:43 EMERSON OSCAR MD Aug 28, 2025 01:37
[2025-08-28 01:40] LABS: PLATELET ESTIMATE INCREASED
[2025-08-28 01:46] LABS: PRO BRAIN NATRIURETIC PEPTIDE > 30000 PG/ML (0-450)
[2025-08-28] MEDS: CefTRIAXone/D5W-Rocephin 1gm 50 ML IV ONE (02:03)
[2025-08-28] MEDS: normal saline 1000ml 1,000 ML IV ONE (02:04)
[2025-08-28] MEDS: calcium gluconate inj. 2 GM in normal saline 100ml IV soln 100 ML IV ONE (02:30)
[2025-08-28] MEDS: dextrose 50%-water 50ml dispensing syringe IV ONE ×2 (02:48→14:38)
[2025-08-28] MEDS: sodium bicarbonate (8.4%) 1 mEq/ml syringe IV ONE (02:49)
[2025-08-28] MEDS: albuterol 2.5 MG/3 ML nebule NEB ONE (02:54)
--- NOTE | 2025-08-28 02:54 | HISTORY AND PHYSICAL-Residence ---
History & Physical Providers to CC Resident Creating Document: BETHANYCATHRYN HOLDEN ~ History of Present Illness Primary Medical Doctor: RAMIRO WARE GRP Reason for Admit\Complaint: Acute hypoxic respiratory failure from possible CHF exacerbation History of Present Illness An 80 years old female with a past medical history of cognitive dysfunction, type 2 diabetes mellitus, hypertension, hyperlipidemia, CHFpEF 65-70% on 12/11/2023, thyroid disorder, history of sepsis from left leg cellulitis, Multifocal atrial tachycardia, Chronic obstructive pulmonary disease, s/p appendicectomy cholecystectomy and hysterectomy, who was brought in by EMS from her home for altered mental status and acute shortness of breaths today. Patient was confused but she is well orientated with baseline dementia status. She was to shortness of breaths to complete a full sentence and confused to pull out the lines. Patient only reported that she was unable to breathe and not feeling good but no idea what is wrong with her and stated that she is living with her . She stated that she was fully ambulatory and active lifestyle which should be reassessed based on her baseline dementia. She denies fever with chills and rigors, chest pain pressure/discomfort, coughing of the blood/sputum, abdominal pain, abnormal bowel and bladder movement except for progressive shortness of breath. She denies using oxygen at home. Furthermore questions should be obtained from the family members, who desires to place the patient under full code as per ER doctor. Allergies: Coded Allergies: Sulfa (Sulfonamide Antibiotics) (Verified Allergy, Unknown, 08/28/25) per EMS sulfamethoxazole (Verified Allergy, Unknown, 08/28/25) trimethoprim (Verified Allergy, Unknown, 08/28/25) Home Medications Home Medications Active Lopressor tablet* (Metoprolol Tartrate) 25 Mg Tablet 25 Mg PO BID 30 Days Hold for SBP below 100mm Hg Hold for Heart Rate below 60. Levothyroxine Sodium 75 Mcg Tablet 150 Mcg PO DAILY@07 30 Days Lasix (Furosemide) 20 Mg Tablet 20 Mg PO DAILY Klor-Con (Potassium Chloride) 10 Meq Tab.prt.sr 1 Tablet PO DAILY along with lasix Reported [place] 10-325 Tablet (Acetaminophen/Hydrocodone Bitart) 1 Each Tablet 1 Tablet PO BID Unisom (Doxylamine Succinate) 25 Mg Tablet 1 Tab PO HS Vitamin D (Cholecalciferol (Vitamin D3)) 2,000 Unit Capsule 1 Cap PO DAILY Triamcinolone Acetonide 15 Gm Oint...g. 1 Applic TP PRN PRN Proair Hfa (Albuterol Sulfate) 8.5 Gm Hfa.aer.ad 2 Puffs IH QID SPIRIVA inhaler (Tiotropium [place]) 18 Mcg/1 Cap Aero 1 Cap INH DAILY Metformin HCl 1,000 Mg Tablet 1 Tablet PO BID Glipizide 5 Mg Tablet 7.5 Mg PO DAILY Zocor (Simvastatin) 20 Mg Tablet 1 Tablet PO DAILY Past Medical History Past Medical History -cognitive dysfunction -type 2 diabetes mellitus -hypertension -hyperlipidemia -CHFpEF 65-70% on 12/11/2023 -thyroid disorder -history of sepsis from left leg cellulitis. -Multifocal atrial tachycardia. -Chronic obstructive pulmonary disease Past Surgical History Surgical History Comment s/p appendicectomy cholecystectomy and hysterectomy Family History Family History: ([place]) Myocardial infarction FATHER, , Age: 50's - 60, Cause: Heart attack, Onset:50's - 60 Cardiac arrest FATHER, , Age: 50's - 60, Cause: Heart attack, Onset:50's - 60 No Family History of: (CVA) Cerebrovascular accident Past Social History Social History Comment As per information from ER staff, the patient is currently living with the house mate at the house. Smoking: Non-Smoker Alcohol Use: None Drug Use: None Lives with: Spouse Lives In: Home ROS All Other Systems: Reviewed and Negative ROS Constitutional: No fever, chills, dizziness, weakness, weight gain or loss Eyes: No pain, erythema, discharge, blurring of vision ENT: No sore throat, epistaxis, tinnitus Cardiovascular: No chest pain, chest pressure, chest discomfort, palpitations, syncope, lower extremity edema, paroxysmal nocturnal dyspnea Respiratory: No cough, hemoptysis Gastrointestinal: Normal appetite. No nausea, vomiting, diarrhea, constipation, hematemesis, abdominal pain, bloating, melena or fresh blood Genitourinary: No frequency, urgency, nocturia, hematuria or dysuria Musculoskeletal: No arthralgias or myalgias Integumentary: No change in skin, hair, nails. No swelling, bruising, abrasions Neurologic: No headache, neck pain, numbness or tingling of the extremities, weakness Psychiatric: No delusions, depression, loss of interest in normal activity or change in sleep pattern, hallucinations, suicidal ideations Endocrine: No fatigue, weakness, polydipsia, polyuria, change in appetite, heat or cold intolerance, sweating, dry skin Hematological: No bleeding, petechiae, bruising Allergies: No asthma or urticaria Exam Vitals: Vital Signs Date Time Temp Pulse Resp B/P (MAP) Pulse Ox O2 Delivery O2 Flow Rate FiO2 08/28/25 02:06 90 22 111/42 (65) 95 4.0 08/27/25 23:51 97.9 General: General: alert, oriented, confused, not agitated, in acute respiratory distress, well cooperated during the physical. HEENT: HEENT: Conjunctive are pink, sclerae clear, no icterus, pupil is equal in both sides, reactive to light, no ear discharge, no pharyngeal erythema or an edema, mouth and lips are dry. Neck: Neck: Supple, no JVD, no lymphadenopathy and thyromegaly. Chest: Lungs:Equal air entry on both lungs, bilateral basal crackles with prolonged expiration Cardiovascular: Heart: S1-S2 regular sinus rhythm and, regular rate, no gallops, no rubs, no murmurs Abdomen: Abdomen: No visible peristalsis, Bowel sounds present on auscultation, soft, nontender, no guarding, no rigidity Extremities: Extremities: No obvious deformities, no pitting edema bilaterally, capillary refill intact, able to wiggle toes both sides, peripheral pulsations are intact on both sides. Severe Bilateral leg cellulitis with foul-smelling with the inflammation with poor hygiene. Central Nervous System: ASSEMBLER [employer]ILLI[place] TABLE: The patient is not cooperating well to assess for ASSEMBLER BILLIARD TABLE exam at that moment Musculoskeletal: Musculoskeletal: No joint swelling, deformities, inflammations, and no scoliosis and back tenderness Skin: Skin: No active skin lesions and rashes, severe poor hygiene foul-smelling bilateral leg skin excoriation and wound from the inflammation infections. Diagnostic Data Last Recorded Lab Results: 08/28/25 1300 08/28/25 1300 Diagnostic Data: Laboratory Tests Test 08/28/25 00:54 Prothrombin Time 10.4 SECONDS (9.0-12.0) INR International Normalized Ratio 1.0 INR Activated Partial Thromboplast Time 32 SECONDS (22-32) D-Dimer 4.15 MG/L FEU (0-0.50) H D-Dimer Comment Coagulation Comments Advance Care Planning Advanced Care plannin - 30 Minutes Additional Plan An 80 years old female with a past medical history of cognitive dysfunction, type 2 diabetes mellitus, hypertension, hyperlipidemia, CHFpEF 65-70% on 12/11/2023, thyroid disorder, history of sepsis from left leg cellulitis, Multifocal atrial tachycardia, Chronic obstructive pulmonary disease, s/p appendicectomy cholecystectomy and hysterectomy, who was brought in by EMS from her home for altered mental status and acute shortness of breaths today. # acute on chronic hypoxic respiratory failure from # possible acute CHFpEF 65-70% on 12/11/2023 exacerbation # acute COPD exacerbation # To exclude out possible PE w/ elevated D Dimer -given history of CHF preserved ejection fraction, COPD on inhalation therapy with presented features of hypoxic respiratory failure, patient was admitted to PCU floor for further management including acute PE exclusion. -chest x-ray showed Cardiomegaly with pulmonary venous congestion. proBNP was elevated. -patient did not meet any SIRS/sepsis criteria on admission -in ER patient was given IV normal saline 200 cc/hours drip -Well score for PE was ranging between 1.5 to 3 with mild to moderate risk as much information was not obtained from Pt, however, D Dimer was elevated and initial trop 70 with possible right heart strain could demand to rule out possible PE. Underlying patient's ESRD, CTA chest was not favor test to rule out PE. -Pt is in acute respiratory distress. CO2 washing out as respiratory compensation with no features of acidosis in the lab. Plan: -continue V/Q scan -was given one time dose of IV Lasix 40 mg in ER, followed by 20 daily -pending echocardiogram -med rec pending, to consider GDMT as per recent Echo result -DuoNeb Q 4 hours as needed, q.6 hours as scheduled, RT notified -IV Solu-Medrol 125 mg stat dose followed by IV 40 mg b.i.d. in ESRD patients -on broad-spectrum IV antibiotics # electrolyte imbalance-hyperkalemia # CKD stage 5/ ESRD # Elevated BUN Cr mostly from Dehydration # selective serum hypoalbuminemia -her baseline creatinine level three months ago was 1.9, sudden elevation to 3.6 within months -initiated hyperkalemia protocol in ER -no EKG changes for hyperkalemia except for sinus tachycardia plan: - nephrology consultation in the a.m. -NPO for now, consider renal diet -strict I's and o's -follow up with repeated potassium level -daily RFT with phosphorus and magnesium -pending urine lytes -consider protein diet # BIlateral severe leg infections/ cellulitis # hypochromic microcytic anemia # neutrophilic leukocytosis # thrombocytosis -thrombocytosis could be possibly from the reactive/inflammatory response from her bilateral leg cellulitis -elevated D-dimer with neutrophilic leukocytosis but lactic acid was normal. with the severe bilateral leg infections and hx of sepsis, fibrinogen was ordered to rule out DIC. -to rule out the possible MAHA from DIC lead to HMA Plan: -wound care consultation, appreciate it -continue IV cefepime and vancomycin as renal dosage for ESRD patient -pain control # T2DM # Hypertension # Hyperlipidemia # Thyroid -pending HGB A1c, lipid panel, TSH -med rec pending -initiated hypo/hyperglycemic protocol with glargine started at 6 units and low- dose sliding scale, to adjust and titrate up according to patient's glucose on IV Solu-Medrol -to range RBS between 140-1 80s during hospitalization CODE STATUS: Full code, to reassess with POA DVT prophylaxis: SC heparin Analgesia/sedation: IV morphine as needed Lines/tubes: PIV GI prophylaxis: Protonix Nutrition: NPO, to consider renal diet Prognosis: Guarded Disposition: Continue medical management, follow up with repeat potassium level, nephrology consultation, V/Q scan, infection control, PT eval and DC plan. Resident MD attestation: Patient was seen, examined and discussed with attending , Dr. Kenna SIMS MD Internal Medicine Resident, PGY3 [facility] Date of Service: Aug 28, 2025 Billing Provider: EBONY ROMERO MD Addendum Attestation I agree with the residents assessment and plan as below: 80 year old female with dementia and COPD admitted with SOB Plan: hyperk cocktail repeat bmp in 2 hours follow up vq scan restart home inhalers steroids for 5 days CCT 52 min using HIPPA compliant A/V technology ADINA SIMS, CATHRYN Aug 28, 2025 02:54 EBONY ORMERO MD Aug 28, 2025 18:49
[2025-08-28] MEDS ORDERED: magnesium sulf-water 4G/100mL 100 ML IV PRN (02:55)
[2025-08-28] MEDS ORDERED: magnesium sulf-water 2g/50mL 50 ML IV PRN (02:55)
[2025-08-28] MEDS: PERFLUTREN PROTEIN-A MICROSPHR (Optison) 0.22 MG/ML 3ML VIAL IV ONE (02:55)
[2025-08-28] MEDS: insulin regular, human 10 units/0.1 ml syringe SQ ONE (02:55)
[2025-08-28] MEDS ORDERED: ondansetron 4mg rapidly disintigrating tab PO PRN (02:55)
[2025-08-28] MEDS ORDERED: docusate sod 100mg capsule PO PRN (02:55)
[2025-08-28] MEDS ORDERED: potassium Cl 20 mEq SR tablet PO PRN ×2 (02:55)
[2025-08-28] MEDS ORDERED: magnesium Cl slow-release 64mg tablet PO PRN (02:55)
[2025-08-28] MEDS ORDERED: potassium Cl 40MEQ/1/2NS 520ml 520 ML IV PRN (02:55)
[2025-08-28] MEDS ORDERED: mag hydrox/Alum hydrox/simeth 30ml oral suspension PO PRN (02:55)
[2025-08-28] MEDS ORDERED: magnesium hydroxide 30ml (MOM) UD suspension PO PRN (02:55)
[2025-08-28] MEDS ORDERED: cefepime 1GM in D5W 50mL 50 ML IV SCH (03:00)
[2025-08-28] MEDS: normal saline 1000ML IV soln IVB ONE (03:09)
[2025-08-28] MEDS ORDERED: ipratropium/albuterol 3ml nebule NEB PRN (03:10)
[2025-08-28] MEDS ORDERED: dextrose 50%-water 50ml dispensing syringe IV PRN (03:20)
[2025-08-28] MEDS ORDERED: DEXTROSE 15 GM of carb/4 tabs (each vial/BOTTLE has 4 tablets) PO PRN ×2 (03:20)
[2025-08-28] MEDS ORDERED: glucagon, human recombinant 1mg kit SUBCUT PRN (03:20)
[2025-08-28] MEDS: furosemide 10 MG/1 ML 10ml inj IV ONE (03:43)
[2025-08-28 04:19] LABS: LEUKOCYTE ESTERASE ,URINE NEGATIVE (Neg); NITRITES, URINE NEGATIVE (Neg); OCCULT BLOOD,URINE NEGATIVE (Neg); UA COLLECTION TYPE NON-SPECIFIED
[2025-08-28 04:26] LABS: SQUAMOUS EPITHELIAL CELL,UR FEW /LPF (FEW)
[2025-08-28] MEDS ORDERED: vancomycin/NS 1 GM ADD-VANTAGE 250 ML X 1 DOSE IV PRN (06:30)
[2025-08-28] MEDS: INSULIN LISPRO 100 UNIT/ML INSULN.PEN MULTI-DOSE SQ SCH (07:00)
[2025-08-28] MEDS: ipratropium/albuterol 3ml nebule NEB SCH ×2 (07:01→12:09)
[2025-08-28 07:17] LABS: CREATININE 3.60 MG/DL (0.40-0.90); TOTAL CARBON DIOXIDE 18.6 MMOL/L (24-32); eCRCL 11 ML/MIN; eGFR 12 ML/MIN
[2025-08-28] MEDS: pantoprazole 40mg Tablet.DR PO SCH (07:30)
[2025-08-28] MEDS: dextrose 50%-water 50ml dispensing syringe IV PRN (07:40)
[2025-08-28] MEDS: CALCIUM GLUC 1gm/50ml NACL,iso 50 ML IV ONE ×2 (07:49→09:40)
[2025-08-28] MEDS: K and/or MAG REPLACEMENT MC SCH (08:00)
[2025-08-28] MEDS ORDERED: ipratropium/albuterol 3ml nebule NEB SCH (08:00)
[2025-08-28] MEDS: VANCOMYCIN 1.75GM/WATER FOR INJ (PEG) 350 ML IVPB IV ONE (08:04)
[2025-08-28] MEDS: heparin, porcine 5000 units/ml vial SQ SCH (08:14)
[2025-08-28 10:02] LABS: ABG BASE EXCESS -13.0 mmol/L (-2.0-3.0); ABG HCO3 12.2 mmol/L (21.0-28.0); ABG OXYGEN SATURATION 88.6 % (94.0-98.0); ABG PCO2 (T) 24.6 mmHg (32.0-45.0); ABG PH (T) 7.309 (7.350-7.450); ABG PO2 (T) 61.4 mmHg (83.0-108.0); ALLEN'S TEST POSITIVE; FCOHb 1.7 % (0.5-1.5); FHHb 11.2 % (0.0-5.0); FIO2 36.0 mmHg/%; FLOW 4 L/min; FMetHb 0.3 % (0.0-1.5); FO2Hb 86.8 % (94.0-98.0); MODE NASAL CANNULA; PATIENT TEMPERATURE 36.3; TOTAL HEMOGLOBIN 7.5 G/dl (12.0-16.0)
[2025-08-28] MEDS: cefepime 1GM in D5W 50mL 50 ML IV SCH (11:12)
[2025-08-28] MEDS: sodium bicarbonate (8.4%) inj. 100 MEQ in dextrose 5%-water 1,000 ML IV SCH (11:13)
[2025-08-28] MEDS ORDERED: FURO20TA4 PO (12:48)
[2025-08-28] MEDS ORDERED: AMLO10TA13 PO (12:48)
[2025-08-28] MEDS ORDERED: LEVO-65 PO (12:48)
[2025-08-28 13:29] LABS: MEAN PLATELET VOLUME 7.8 FL (7.4-10.4); RED CELL DISTRIBUTION WIDTH 22.1 % (11.5-14.5)
[2025-08-28 13:33] LABS: CREATININE 3.65 MG/DL (0.40-0.90); TOTAL CARBON DIOXIDE 16.1 MMOL/L (24-32); eCRCL 11 ML/MIN; eGFR 12 ML/MIN
[2025-08-28] MEDS: insulin regular, human 10 units/0.1 ml syringe IV ONE (14:39)
[2025-08-28] MEDS: calcium chloride 100 MG/1 ML inj IV ONE (14:39)
[2025-08-28] MEDS: ziprasidone IM 20mg inj **IM only IM PRN (14:52)
[2025-08-28] MEDS: fluconazole-Diflucan 100MG/NS 50 ML IV SCH (17:37)
--- NOTE | 2025-08-28 18:38 | PROGRESS NOTE ---
Daily Progress Note Providers to CC ~ Antibiotic Timeout Antibiotic Ordered?: Yes Subjective The patient is has been was at bedside when I initially evaluated the patient the patient has a advanced dementia in the has been is to the point where he feels like he can not take care of his any longer- she is requiring restraints currently an IM Geodon is ordered. The patient also required a transfusion of 1 unit of packed red blood cells. The patient is renal function is stable and the patient is evaluated by Dr. Wills segmental paving supervisor who recommended that if the patient does require temporary dialysis this is an option however the patient is not be a candidate for permanent dialysis treatment. I did carefully discuss the patient's code status with the however mentioned in the subject the patient broke out in tears and I apologized to the patient is has been that I did not in 10 for him to cry and the patient's did informed me that it is difficult for him. Multiple IVs had blown and that has a central line is being placed Objective Vital Signs Date Time Temp Pulse Resp B/P (MAP) Pulse Ox O2 Delivery O2 Flow Rate FiO2 08/28/25 17:01 97.6 87 17 114/63 08/28/25 12:14 Nasal Cannula 6.0 08/28/25 12:10 92 44 Result Diagram: 08/28/25 1300 08/28/25 1300 Gen. No acute distress confused and frequently requesting help Lungs clear to ascultation bilaterally, no wheezes rales or rhonchi appreciated Heart normal sinus rhythm no murmurs rubs or clicks noted Abdomen soft nontender bowel sounds are normoactive Lower extremities no clubbing cyanosis, 1+ pitting edema bilaterally, significant erythema distally bilaterally Skin beefy red erythematous macules and papules coalescing into a plaque under the breast and superior abdominal region Coagulation Studies Laboratory Tests Test 08/28/25 00:54 Prothrombin Time 10.4 SECONDS (9.0-12.0) INR International Normalized Ratio 1.0 INR Activated Partial Thromboplast Time 32 SECONDS (22-32) Fibrinogen 520 MG/DL (177-424) H D-Dimer 4.15 MG/L FEU (0-0.50) H D-Dimer Comment Coagulation Comments Coagulation Clinical Comments Problem\Assessment\Plan # dementia with psychotic features PRN IM Geodon # acute on chronic respiratory failure # elevated D-dimer I discussed with the patient's of our concerns that the patient could have a pulmonary embolism however due the patient is acute kidney injury a CT angiogram is contraindicated- a V/Q scan has been ordered however the operator technician was concerned that is to obtain a V/Q scan radioactive nebulizer treatment is administered and that the patient is at high-risk of causing a radioactive contamination of the area and that is this is contraindicated as well Due the patient has a acute anemia requiring transfusion treating with a heparin drip or full-strength anticoagulation is contraindicated as well as the patient is receiving a transfusion at this time # normocytic anemia Hemoglobin dropped from 7.6-6.9 1 unit of packed red blood cells being transfused however the patient has IV blue during the transfusion and the patient has had multiple IVs blown a central line has been placed # VERN likely secondary to vasomotor nephropathy poor p.o. intake # metabolic acidosis And a bicarb drip Baseline creatinine is around 1.5 Dr. Wills segmental paving supervisor is following the patient # hyperkalemia IV calcium 1 g 10 units of insulin and amp of D50 Repeat lab is ordered # [id number] diabetes mellitus on the hyper and hypoglycemic protocol # tinea cruris IV fluconazole # bilateral lower extremity cellulitis IV cefepime and IV vancomycin 60 minutes of critical care time was spent treating the patient on 08/28/2025 Date of Service: Aug 28, 2025 Billing Provider: ROMY ORR DO Common Visit Codes: [id number] CARE 30-74 MIN ROMY ORR DO Aug 28, 2025 18:38
--- NOTE | 2025-08-28 18:41 | CONSULTATION REPORT ---
Consult Providers to CC ~ History of Present Illness Reason for Admit\Complaint: Shortness of breath History of Present Illness This is an elderly woman with advanced CKD, acute on chronic kidney injury, severe anemia, metabolic acidosis with hyperkalemia, hypoxic respiratory failure from COPD exacerbation, possible heart failure exacerbation, and suspected lower extremity cellulitis. She requires close monitoring of renal function, volume status, electrolytes, and respiratory status, with ongoing management of infection, anemia, and her chronic comorbidities. Allergies: Coded Allergies: Sulfa (Sulfonamide Antibiotics) (Verified Allergy, Unknown, 08/28/25) per EMS sulfamethoxazole (Verified Allergy, Unknown, 08/28/25) trimethoprim (Verified Allergy, Unknown, 08/28/25) Home Medications Home Medications Active Lopressor tablet* (Metoprolol Tartrate) 25 Mg Tablet 25 Mg PO BID 30 Days Hold for SBP below 100mm Hg Hold for Heart Rate below 60. Levothyroxine Sodium 75 Mcg Tablet 150 Mcg PO DAILY@07 30 Days Lasix (Furosemide) 20 Mg Tablet 20 Mg PO DAILY Klor-Con (Potassium Chloride) 10 Meq Tab.prt.sr 1 Tablet PO DAILY along with lasix Reported Amlodipine Besylate 10 Mg Tablet 1 Tab PO DAILY Furosemide 20 Mg Tablet 1 Tab PO DAILY Levofloxacin 500 Mg Tablet 1 Tab PO DAILY Unisom (Doxylamine Succinate) 25 Mg Tablet 1 Tab PO HS Vitamin D (Cholecalciferol (Vitamin D3)) 2,000 Unit Capsule 1 Cap PO DAILY Proair Hfa (Albuterol Sulfate) 8.5 Gm Hfa.aer.ad 2 Puffs IH QID Metformin HCl 1,000 Mg Tablet 1 Tablet PO BID Zocor (Simvastatin) 20 Mg Tablet 1 Tablet PO DAILY Past Medical History Past Medical History Reviewed Past Surgical History Surgical History Comment Reviewed Family History Family History: ([place]) Myocardial infarction FATHER, , Age: 50's - 60, Cause: Heart attack, Onset:50's - 60 Cardiac arrest FATHER, , Age: 50's - 60, Cause: Heart attack, Onset:50's - 60 No Family History of: (CVA) Cerebrovascular accident Past Social History Social History Comment Reviewed Health Maintenance Health Maintenance Reviewed ROS ROS All other systems negative by family report Exam Vitals: Vital Signs Date Time Temp Pulse Resp B/P (MAP) Pulse Ox O2 Delivery O2 Flow Rate FiO2 08/28/25 17:01 97.6 87 17 114/63 08/28/25 12:14 Nasal Cannula 6.0 08/28/25 12:10 92 44 Alert RRR w/o murmur CTAB +BS, NT 2+ edema Diagnostic Data Last Recorded Lab Results: 08/28/25 1300 08/28/25 1300 Diagnostic Data: Laboratory Tests Test 08/28/25 00:54 Prothrombin Time 10.4 SECONDS (9.0-12.0) INR International Normalized Ratio 1.0 INR Activated Partial Thromboplast Time 32 SECONDS (22-32) Fibrinogen 520 MG/DL (177-424) H D-Dimer 4.15 MG/L FEU (0-0.50) H D-Dimer Comment Coagulation Comments Coagulation Clinical Comments Problems: (1) Acute kidney injury superimposed on CKD Assessment & Plan: Acute Kidney Injury (VERN) on Chronic Kidney Disease (CKD) Stage IV: This 80-year-old woman with a baseline creatinine of 1.9 (CKD stage IV) now presents with a creatinine of 3.65 and oliguria (500 mL urine output since admission), consistent with VERN superimposed on CKD. The etiology is likely multifactorial, including possible prerenal azotemia from hypoperfusion (noting borderline hypotension and possible volume depletion from infection or diuresis), nephrotoxic exposure (vancomycin, cefepime), and possible cardiorenal syndrome given her heart failure history. There is no clear evidence of obstruction or post-renal cause. Plan: Monitor renal function and urine output closely, avoid further nephrotoxins, adjust all medications for renal dosing, maintain euvolemia, and consider renal ultrasound if obstruction is suspected. Monitor for indications for renal replacement therapy. 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 There is no mention of overt bleeding. Plan: Transfuse packed red blood cells today to target hemoglobin >8 g/dL, monitor for transfusion reactions, and evaluate for underlying causes (iron studies, reticulocyte count, hemolysis labs if indicated). Continue to monitor hemoglobin and hematocrit. (3) Electrolyte abnormality Assessment & Plan: Electrolyte and Acid-Base Abnormalities: She has hyperkalemia (K 5.7), mild hyponatremia (Na 140), mild hyperchloremia (Cl 105), low bicarbonate (CO2 16), and metabolic acidosis. Her ABG shows pH 7.309, pCO2 24.6, HCO3 12.2, consistent with a primary high anion gap metabolic acidosis (likely uremic acidosis from VERN/CKD) with partial respiratory compensation. The potassium elevation is likely due to decreased renal excretion. Plan: Monitor potassium closely, initiate measures to lower potassium if >6 or with EKG changes (calcium gluconate, insulin/glucose, albuterol, sodium polystyrene, or dialysis if refractory), continue to monitor acid-base status, and consider bicarbonate therapy if acidosis worsens or if symptomatic. (4) Abnormal acid-base balance Assessment & Plan: See electrolyte above (5) Cellulitis Assessment & Plan: Suspected Cellulitis: She has lower extremity edema and erythema, suggestive of cellulitis. She is being treated empirically with cefepime and vancomycin, both renally dosed. Plan: Continue current antibiotics, monitor for clinical improvement, and adjust antibiotics based on culture results and renal function. (6) Cognitive decline Assessment & Plan: Cognitive Dysfunction: Her cognitive dysfunction complicates her history and management. She is a poor historian, and her provides collateral information. Plan: Continue to involve family in care, assess for delirium, and minimize polypharmacy and sedating medications. (7) COPD exacerbation Status: Acute Assessment & Plan: Hypoxic Respiratory Failure due to COPD Exacerbation: She is hypoxic (O2 sat 92% on 6 L nasal cannula, FiO2 44%) with a history of COPD and is being treated for an acute exacerbation. There is no evidence of infection (no fever, chills, cough, or sputum), but her respiratory status is tenuous. Plan: Continue supplemental oxygen, titrate to maintain O2 sat >88-92%, monitor for hypercapnia, continue bronchodilators and steroids as indicated, and monitor for signs of respiratory fatigue or need for noninvasive or invasive ventilation. V/Q scan is planned to rule out pulmonary embolism. (8) Diastolic heart failure Status: Acute Assessment & Plan: Heart Failure with Preserved Ejection Fraction (HFpEF): She has a history of HFpEF (EF 65-70%) and presents with lower extremity edema, which may be multifactorial (volume overload from VERN, heart failure exacerbation, or infection). Plan: Monitor volume status closely, avoid fluid overload, consider gentle diuresis if volume overloaded and if renal function allows, and monitor for signs of decompensated heart failure. EVARISTO NUNES III DO Aug 28, 2025 18:41
--- NOTE | 2025-08-28 19:12 | RADIOLOGY REPORT ---
CHEST RADIOGRAPH REASON FOR EXAM: confirm placement of central line COMPARISON: DI CHEST,SINGLE VIEW on DOS: 08/28/25, DI CHEST,SINGLE VIEW on DOS: 12/10/23 TECHNIQUE: One view of the chest is provided FINDINGS: The cardiomediastinal silhouette is stably enlarged. There is a right neck catheter with the tip projecting over the upper SVC. There is diffuse interstitial prominence consistent with pulmonary edema. There are small bilateral pleural effusions. There is no pneumothorax. There is no lobar c onsolidation. No acute osseous abnormality is identified. IMPRESSION: Cardiomegaly. Pulmonary edema. Small bilateral pleural effusions. Right neck catheter tip projects over the upper SVC.
--- NOTE | 2025-08-28 19:21 | PROCEDURE NOTE- Residance ---
Procedure Note Providers to CC ~ Planned Procedure Right internal jugular vein Indications No other IV access, large volume fluid delivery Post Operative Dx: None [facility] Dispenser Eagle Neely Type of Anesthesia Lcoal, lidocaine Informed Consent Obtained from the Description A time out was performed. My hands were washed immediately prior to the procedure. I wore a surgical cap, mask with protective eyewear, full gown and sterile gloves throughout the procedure. The patient was placed in Trendelenburg position. The right neck was prepped using chlorhexidine scrub and draped in sterile fashion using a three quarter sheet drape and sterile towels. Skin preparation was allowed to dry prior to skin puncture. Anatomic landmarks were identified. Anesthesia was achieved over the vein using 1% lidocaine. Using real-time ultrasound, with sterile probe cover and sterile gel, the introducer needle was inserted into the vein under direct ultrasound visualization. Venous blood was withdrawn. The syringe was removed and a guidewire was advanced into the introducer needle. The guidewire was visualized in the appropriate vein by ultrasound. A small incision was made at the skin surface with a scalpel and the introducer needle was exchanged for a dilator over the guidewire. After appropriate dilation was obtained, the dilator was exchanged over the wire for an antimicrobial coated central venous catheter. The wire was removed and the catheter was sutured in place at 15 cm. A biopatch was placed at the insertion site. A sterile op-site was placed over the catheter and biopatch. The patient tolerated the procedure without any hemodynamic compromise. At time of procedure completion, all ports aspirated and flushed properly. Estimated Blood Loss 5cc Complication None X-Ray Findings Cardiomegaly. Pulmonary edema. Small bilateral pleural effusions. Right neck catheter tip projects over the upper SVC. Date of Service: Aug 28, 2025 Billing Provider: MARCOS APODACA MD, DEEPANJALI, CATHRYN Aug 28, 2025 19:21
--- NOTE | 2025-08-28 19:29 | CONSULTATION REPORT - RESIDENT ---
Consult Providers to CC Resident Creating Document: TOÑOBIASEBASTIÁN RES History of Present Illness Reason for Admit\Complaint: Acute hypoxemic respiratory failure History of Present Illness This is an 80-year-old female patient with baseline advanced dementia status, type 2 diabetes mellitus, hypertension, hyperlipidemia and heart failure with preserved ejection fraction presents to the hospital due to altered mental status and increased shortness of breath from home. She is requiring Geodon q.6 hours and soft restraint to maintain her safety. Allergies: Coded Allergies: Sulfa (Sulfonamide Antibiotics) (Verified Allergy, Unknown, 08/28/25) per EMS sulfamethoxazole (Verified Allergy, Unknown, 08/28/25) trimethoprim (Verified Allergy, Unknown, 08/28/25) Home Medications Home Medications Active Lopressor tablet* (Metoprolol Tartrate) 25 Mg Tablet 25 Mg PO BID 30 Days Hold for SBP below 100mm Hg Hold for Heart Rate below 60. Levothyroxine Sodium 75 Mcg Tablet 150 Mcg PO DAILY@07 30 Days Lasix (Furosemide) 20 Mg Tablet 20 Mg PO DAILY Klor-Con (Potassium Chloride) 10 Meq Tab.prt.sr 1 Tablet PO DAILY along with lasix Reported Amlodipine Besylate 10 Mg Tablet 1 Tab PO DAILY Furosemide 20 Mg Tablet 1 Tab PO DAILY Levofloxacin 500 Mg Tablet 1 Tab PO DAILY Unisom (Doxylamine Succinate) 25 Mg Tablet 1 Tab PO HS Vitamin D (Cholecalciferol (Vitamin D3)) 2,000 Unit Capsule 1 Cap PO DAILY Proair Hfa (Albuterol Sulfate) 8.5 Gm Hfa.aer.ad 2 Puffs IH QID Metformin HCl 1,000 Mg Tablet 1 Tablet PO BID Zocor (Simvastatin) 20 Mg Tablet 1 Tablet PO DAILY Past Medical History Past Medical History Hypertension, type 2 diabetes mellitus, advanced dementia, heart failure preserved ejection fraction, multifocal atrial tachycardia COPD Past Surgical History Surgical History Comment Appendectomy, cholecystectomy and hysterectomy Family History Family History: ([place]) Myocardial infarction FATHER, , Age: 50's - 60, Cause: Heart attack, Onset:50's - 60 Cardiac arrest FATHER, , Age: 50's - 60, Cause: Heart attack, Onset:50's - 60 No Family History of: (CVA) Cerebrovascular accident ROS ROS Unable to be obtained Exam Vitals: Vital Signs Date Time Temp Pulse Resp B/P (MAP) Pulse Ox O2 Delivery O2 Flow Rate FiO2 08/28/25 18:40 97.8 96 24 115/48 08/28/25 15:00 93 Nasal Cannula 4.0 08/28/25 12:10 44 General: General: Confused Resp: Diffuse coarse crepitations heard bilaterally Heart: Regular Rate and rhythm, normal S1 and S2 without murmur, rub or gallop. Abdomen: Soft and non tender no organomegaly Extremities: No cyanosis,clubbing or edema. Skin: Warm and Dry. Diagnostic Data Last Recorded Lab Results: 08/28/25 1300 08/28/25 1300 Diagnostic Data: Laboratory Tests Test 08/28/25 00:54 Prothrombin Time 10.4 SECONDS (9.0-12.0) INR International Normalized Ratio 1.0 INR Activated Partial Thromboplast Time 32 SECONDS (22-32) Fibrinogen 520 MG/DL (177-424) H D-Dimer 4.15 MG/L FEU (0-0.50) H D-Dimer Comment Coagulation Comments Coagulation Clinical Comments Additional Plan Acute hypoxemic respiratory failure: Chest x-ray reveals increased pulmonary vascular congestion and pulmonary edema Cardiomegaly and bilateral pleural effusions also evident Currently on Solu-Medrol 40 mg IV b.i.d. On broad-spectrum antibiotic therapy including cefepime and vancomycin Unable to rule out PE by CTA or V/Q scan Hypothyroidism: Continue levothyroxine 150 mcg Advanced dementia: Geodon q.6 hours PRN Acute kidney injury: Metabolic acidosis secondary to above Possibility of requiring temporary dialysis Nephrology on board Lines: Right IJV, 2 PIVs in both arms DVT prophylaxis: Heparin Sebastián Neely PGY3, Internal medicine resident Consult for Dr. Frida GUTIERREZ Date of Service: Aug 28, 2025 Billing Provider: MARCOS APODACA MD,SEBASTIÁN, RES Aug 28, 2025 19:29
[2025-08-28] MEDS: insulin glargine (Lantus) pen - multi-dose SQ SCH (21:00)
[2025-08-28 21:05] LABS: CREATININE 3.60 MG/DL (0.40-0.90); TOTAL CARBON DIOXIDE 16.2 MMOL/L (24-32); eCRCL 11 ML/MIN; eGFR 12 ML/MIN
[2025-08-28] MEDS: SODIUM ZIRCONIUM CYCLOSILICATE 10 GM POWD.PACK PO SCH (21:52)
[2025-08-28 22:47] LABS: MEAN PLATELET VOLUME 7.6 FL (7.4-10.4); RED CELL DISTRIBUTION WIDTH 20.9 % (11.5-14.5)
[2025-08-29] VITALS (25 sets, daily range): BP systolic 94–116; BP diastolic 44–57; PULSE 78–106; RESP 12–22; TEMP 97.3–98.2; O2SAT 92–98
[2025-08-29] MEDS: albuterol 2.5 MG/3 ML nebule NEB PRN (00:04)
[2025-08-29] MEDS: VANCOMYCIN RANDOM LEVEL IV SCH (03:00)
[2025-08-29 03:59] LABS: MEAN PLATELET VOLUME 7.5 FL (7.4-10.4); RED CELL DISTRIBUTION WIDTH 20.8 % (11.5-14.5)
[2025-08-29 04:21] LABS: CHOL/HDL RATIO 2.5 (0.00-4.99); CREATININE 3.63 MG/DL (0.40-0.90); LDL CHOLESTEROL 64 MG/DL (50-100); PHOSPHORUS 5.8 MG/DL (2.3-4.5); TOTAL CARBON DIOXIDE 22.1 MMOL/L (24-32); eCRCL 11 ML/MIN; eGFR 12 ML/MIN
[2025-08-29] MEDS: levoTHYROXINE 75mcg tablet PO SCH (07:00)
[2025-08-29] MEDS: morphine 4 MG/ML inj SYRINge IV PRN ×2 (08:43→23:08)
[2025-08-29] MEDS: VANCOMYCIN DOSE IV ONE (10:40)
[2025-08-29 11:22] LABS: MEAN PLATELET VOLUME 7.8 FL (7.4-10.4); RED CELL DISTRIBUTION WIDTH 19.2 % (11.5-14.5)
[2025-08-29 12:55] LABS: LEUKOCYTE ESTERASE ,URINE SMALL (Neg); NITRITES, URINE NEGATIVE (Neg); OCCULT BLOOD,URINE LARGE (Neg)
[2025-08-29 13:00] LABS: UA COLLECTION TYPE FOLEY CATH
[2025-08-29 13:01] LABS: MUCUS STRANDS FEW /LPF (Neg); SQUAMOUS EPITHELIAL CELL,UR MODERATE /LPF (FEW)
[2025-08-29 13:02] LABS: HYALINE CASTS 0-3 /LPF (NEGATIVE); OSMOLALITY UA 355.0 MOSM/K (50-1400)
[2025-08-29 13:22] LABS: CREATININE,URINE RANDOM 54.0 MG/DL; UA EOSINOPHILS NO EOS /HPF; UA UREA RANDOM 530.0 MG/DL
--- NOTE | 2025-08-29 15:26 | PROGRESS NOTE ---
Daily Progress Note Providers to CC ~ Antibiotic Timeout Antibiotic Ordered?: Yes Subjective The patient is sleeping when I went to evaluate her she did receive IM Geodon yesterday- her hemoglobin now is improved with transfusion of the 2nd unit of packed red blood cells. Objective Vital Signs Date Time Temp Pulse Resp B/P (MAP) Pulse Ox O2 Delivery O2 Flow Rate FiO2 08/29/25 15:20 78 18 Nasal Cannula 5.0 08/29/25 15:14 92 40 08/29/25 11:00 97.8 107/57 (74) Result Diagram: 08/29/25 1100 08/29/25 0340 Gen. No acute distress lethargic Lungs clear to ascultation bilaterally, no wheezes rales or rhonchi appreciated Heart normal sinus rhythm no murmurs rubs or clicks noted Abdomen soft nontender bowel sounds are normoactive Lower extremities no clubbing cyanosis, 1+ pitting edema bilaterally, significant erythema distally bilaterally Skin beefy red erythematous macules and papules coalescing into a plaque under the breast and superior abdominal region Coagulation Studies Laboratory Tests Test 08/28/25 00:54 Prothrombin Time 10.4 SECONDS (9.0-12.0) INR International Normalized Ratio 1.0 INR Activated Partial Thromboplast Time 32 SECONDS (22-32) Fibrinogen 520 MG/DL (177-424) H D-Dimer 4.15 MG/L FEU (0-0.50) H D-Dimer Comment Coagulation Comments Coagulation Clinical Comments Problem\Assessment\Plan # dementia with psychotic features PRN IM Geodon # acute on chronic respiratory failure # elevated D-dimer I discussed with the patient's of our concerns that the patient could have a pulmonary embolism however due the patient is acute kidney injury a CT angiogram is contraindicated- a V/Q scan has been ordered however the sewer and drain technician was concerned that is to obtain a V/Q scan radioactive nebulizer treatment is administered and that the patient is at high-risk of causing a radioactive contamination of the area and that is this is contraindicated as well Due the patient has a acute anemia requiring transfusion treating with a heparin drip or full-strength anticoagulation is contraindicated as well as the patient is receiving a transfusion at this time 08/29 has stabilized # normocytic anemia Hemoglobin dropped from 7.6-6.9 1 unit of packed red blood cells being transfused however the patient has IV blue during the transfusion and the patient has had multiple IVs blown a central line has been placed 08/29 hemoglobin improved from 6.9-7.1 after 1 unit was transfused of packed red blood cells this morning's hemoglobin was 6.9 the patient was transfused an additional unit of packed red blood cells and hemoglobin now is 8.4 # VERN likely secondary to vasomotor nephropathy poor p.o. intake # metabolic acidosis And a bicarb drip Baseline creatinine is around 1.5 Dr. Wills box gluer is following the patient 08/29 metabolic acidosis has resolved- kidney function is slightly worse change IV fluids to D5W at 100 cc an hour # hyperkalemia IV calcium 1 g 10 units of insulin and amp of D50 Repeat lab is ordered 08/29 hyperkalemia has resolved serum potassium now is 4.5 # [id number] diabetes mellitus on the hyper and hypoglycemic protocol # tinea cruris IV fluconazole # bilateral lower extremity cellulitis IV cefepime and IV vancomycin 60 minutes of critical care time was spent treating the patient on 08/28/2025 Date of Service: Aug 29, 2025 Billing Provider: ROMY ORR DO Common Visit Codes: [id number] INP/OBS CARE(HIGH) ROMY ORR DO Aug 29, 2025 15:26
--- NOTE | 2025-08-29 17:17 | RADIOLOGY REPORT ---
US ULTRASOUND KIDNEY NON VASC Comparison: None Indication: VERN Technique: Ultrasound exam of the retroperitoneum was performed. The bladder wall is not imaged (status post burgos catheter per technologist note). Findings: Limited exam due to patient positioning and rapid breathing. Severely limited study with bilateral kidneys partially obscured. No definite Hydronephrosis. The left kidney measures approximately 9.5 cm. The right kidney measures 6.5 cm, likely underestimated. IMPRESSION: Severely limited study with bilateral kidneys partially obscured. No definite collecting system dilatation. Consider follow-up ultrasound or CT if there is persistent clinical concern.
--- NOTE | 2025-08-29 17:23 | PROGRESS NOTE ---
Progress Note Dictate Providers to CC ~ Progress Note: This is an elderly woman with advanced CKD, acute on chronic kidney injury, severe anemia, metabolic acidosis with hyperkalemia, hypoxic respiratory failure from COPD exacerbation, possible heart failure exacerbation, and suspected lower extremity cellulitis. She requires close monitoring of renal function, volume status, electrolytes, and respiratory status, with ongoing management of infection, anemia, and her chronic comorbidities. Antibiotic Ordered?: N/A Subjective Subjective Resting in bed confused today Objective Vitals Vital Signs Date Time Temp Pulse Resp B/P (MAP) Pulse Ox O2 Delivery O2 Flow Rate FiO2 08/29/25 15:20 78 18 Nasal Cannula 5.0 08/29/25 15:14 92 40 08/29/25 15:00 98.2 112/57 (75) Alert, confused RRR w/o murmur CTAB +BS, NT No edema Lab Results: 08/29/25 1100 08/29/25 0340 Coagulation Studies Laboratory Tests Test 08/28/25 00:54 Prothrombin Time 10.4 SECONDS (9.0-12.0) INR International Normalized Ratio 1.0 INR Activated Partial Thromboplast Time 32 SECONDS (22-32) Fibrinogen 520 MG/DL (177-424) H D-Dimer 4.15 MG/L FEU (0-0.50) H D-Dimer Comment Coagulation Comments Coagulation Clinical Comments Other Results I & O 08/29/25 07:00 Intake Total 620 ml Output Total 900 ml Balance -280 ml Intake Oral 120 ml Blood Product 250 ml Other 250 ml Output Urine Total 900 ml Problem\Assessment\Plan Problems/Diagnosis: (1) Acute kidney injury superimposed on CKD Assessment & Plan: Acute Kidney Injury (VERN) on Chronic Kidney Disease (CKD) Stage IV: This 80-year-old woman with a baseline creatinine of 1.9 (CKD stage IV) now presents with a creatinine of 3.65 and oliguria (500 mL urine output since admission), consistent with VERN superimposed on CKD. The etiology is likely multifactorial, including possible prerenal azotemia from hypoperfusion (noting borderline hypotension and possible volume depletion from infection or diuresis), nephrotoxic exposure (vancomycin, cefepime), and possible cardiorenal syndrome given her heart failure history. There is no clear evidence of obstruction or post-renal cause. Plan: Monitor renal function and urine output closely, avoid further nephrotoxins, adjust all medications for renal dosing, maintain euvolemia, and consider renal ultrasound if obstruction is suspected. Monitor for indications for renal replacement therapy. 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 There is no mention of overt bleeding, and I see no signs. Plan: Transfuse packed red blood cells today to target hemoglobin >8 g/dL, monitor for transfusion reactions, and evaluate for underlying causes (iron studies, reticulocyte count, hemolysis labs if indicated). Continue to monitor hemoglobin and hematocrit. (3) Electrolyte abnormality Assessment & Plan: Electrolyte and Acid-Base Abnormalities: She has hyperkalemia (K 5.7), mild hyponatremia (Na 140), mild hyperchloremia (Cl 105), low bicarbonate (CO2 16), and metabolic acidosis. Her ABG shows pH 7.309, pCO2 24.6, HCO3 12.2, consistent with a primary high anion gap metabolic acidosis (likely uremic acidosis from VERN/CKD) with partial respiratory compensation. The potassium elevation is likely due to decreased renal excretion. Plan: Monitor potassium closely, initiate measures to lower potassium if >6 or with EKG changes (calcium gluconate, insulin/glucose, albuterol, sodium polystyrene, or dialysis if refractory), continue to monitor acid-base status, and consider bicarbonate therapy if acidosis worsens or if symptomatic. (4) Abnormal acid-base balance Assessment & Plan: See electrolyte above (5) Cellulitis Assessment & Plan: Suspected Cellulitis: She has lower extremity edema and erythema, suggestive of cellulitis. She is being treated empirically with cefepime and vancomycin, both renally dosed. Plan: Continue current antibiotics, monitor for clinical improvement, and adjust antibiotics based on culture results and renal function. (6) Cognitive decline Assessment & Plan: Cognitive Dysfunction: Her cognitive dysfunction complicates her history and management. She is a poor historian, and her provides collateral information. Plan: Continue to involve family in care, assess for delirium, and minimize polypharmacy and sedating medications. (7) COPD exacerbation Assessment & Plan: Hypoxic Respiratory Failure due to COPD Exacerbation: She is hypoxic (O2 sat 92% on 6 L nasal cannula, FiO2 44%) with a history of COPD and is being treated for an acute exacerbation. There is no evidence of infection (no fever, chills, cough, or sputum), but her respiratory status is tenuous. Plan: Continue supplemental oxygen, titrate to maintain O2 sat >88-92%, monitor for hypercapnia, continue bronchodilators and steroids as indicated, and monitor for signs of respiratory fatigue or need for noninvasive or invasive ventilation. V/Q scan is planned to rule out pulmonary embolism. (8) Diastolic heart failure Assessment & Plan: Heart Failure with Preserved Ejection Fraction (HFpEF): She has a history of HFpEF (EF 65-70%) and presents with lower extremity edema, which may be multifactorial (volume overload from VERN, heart failure exacerbation, or infection). Plan: Monitor volume status closely, avoid fluid overload, consider gentle diuresis if volume overloaded and if renal function allows, and monitor for signs of decompensated heart failure. EVARISTO NUNES III DO Aug 29, 2025 17:22
[2025-08-30] VITALS (19 sets, daily range): BP systolic 105–119; BP diastolic 48–56; PULSE 74–87; RESP 11–24; TEMP 97.2–98.2; O2SAT 93–96
[2025-08-30 06:27] LABS: MEAN PLATELET VOLUME 7.8 FL (7.4-10.4); RED CELL DISTRIBUTION WIDTH 20.0 % (11.5-14.5)
--- NOTE | 2025-08-30 06:57 | CARDIOLOGY REPORT ---
APPROVED REPORT EXAM: Comprehensive 2D, Doppler, and color-flow Echocardiogram. Patient Location: 3027 A Heart Rate: 80's bpm Rhythm: SINUS Indications CONGESTIVE HEART FAILIRE DIABETES MELLITUS 2 HYPERTENSION TACHYCARDIA SHORTNESS OF BREATH Tawer: NONE Previous echo: [facility] 12/11/23 EF 65-70%, AGATA: 1.87, PK V: 281, GRAD: 32/18, mLVH, RVE, LAE, tTR 2D Dimensions RVDd 3.7 cm IVSd 1.2 (0.7-1.1cm) LVDd 5.0 cm PWd 1.2 (0.7-1.1cm) IVSs 1.3 (0.8-1.2cm) LVDs 3.6 (2.5-4.0cm) PWs 1.3 (0.8-1.2cm) LVOT Diameter 1.98 (1.8-2.4cm) LVEF(%) 55.5 (>50%) FS (%) 29.0 % SV 68.1 ml CO 6.1 L/min M-Mode Dimensions Left Atrium(MM) 5.35 (2.5-4.0cm) Aortic Root 3.09 (2.2-3.7cm) Aortic Cusp Exc 0.82 (1.5-2.0cm) Aortic Valve AoV Peak Ilya. 304.6 cm/s AoV VTI 66.3 cm AO Peak GR. 37.1 mmHg AO Mean GR. 20 mmHg LVOT VTI 29.29 cm LVOT Peak Ilya. 141.0 cm/s AGATA(VTI)/BSA 1.37 cm2/m2 AGATA (VTI) 1.37 cm2 AV DI 0.44 % Mitral Valve MV E Velocity 179.3 cm/s MV Peak Gr. 15 mmHg MV DECEL TIME 208 ms MV A Velocity 148.2 cm/s MV PHT 56 ms E/A Ratio 1.2 MVA (PHT) 3.93 cm2 MV VMax 196.2 cm/s Tricuspid Valve TR P. Velocity 400 cm/s RAP ESTIMATE 10 mmHg TR Peak Gr. 64 mmHg RVSP 74 mmHg LEFT VENTRICLE Normal LV size and function. Mild concentric hypertrophy. LVEF is 55-60%. RIGHT VENTRICLE RV is mildly dilated with normal function. Elevated right heart pressures with an RVSP of 74 mmHg. ATRIA Left atrium is severely dilated. AORTIC VALVE Trileaflet AV appears moderately sclerotic with moderate stenosis. AGATA: 1.37 cmsq; Pkv: 305 cm/sec; Gradients: 37/20 mmHG. Trace insufficiency. MITRAL VALVE Moderate MV annular calcification (celestina PML) without stenosis. Moderate regurgitation. TRICUSPID VALVE TV appears structurally normal with mild regurgitation. PULMONIC VALVE Normal PV without stenosis, physiologic insufficiency. GREAT VESSELS The aortic root is normal in size. PERICARDIUM Normal pericardium. No effusion. Other Information Study Quality: Adequate Conclusion Normal LV size and function. Mild concentric hypertrophy. LVEF is 55-60%. RV is mildly dilated with normal function. Elevated right heart pressures with an RVSP of 74 mmHg. Left atrium is severely dilated. Trileaflet AV appears moderately sclerotic with moderate stenosis. AGATA: 1.37 cmsq; Pkv: 305 cm/sec; Gradients: 37/20 mmHG. Trace insufficiency. Moderate MV annular calcification (celestina PML) without stenosis. Moderate regurgitation. TV appears structurally normal with mild regurgitation. Normal pericardium. No effusion.
[2025-08-30 06:59] LABS: CREATININE 3.61 MG/DL (0.40-0.90); PHOSPHORUS 5.6 MG/DL (2.3-4.5); TOTAL CARBON DIOXIDE 21.6 MMOL/L (24-32); eCRCL 11 ML/MIN; eGFR 12 ML/MIN
[2025-08-30 07:09] LABS: PLATELET ESTIMATE NORMAL
--- NOTE | 2025-08-30 09:19 | RADIOLOGY REPORT ---
EXAM: CT CT ABDOMEN PELVIS HISTORY: VERN- kidneys poorly visualized on renal ultrasound Comparison Study: None Exam Date: 08/30/2025 08:26 AM Radiation Dose Information: CT Dose: CTDI volume is 34 mGy. Dose-length product is 1690 mGy*cm Technique: Multidetector CT of the abdomen and pelvis was performed. Imaging was performed without IV contrast. Axial, coronal and sagittal multiplanar reformats were obtained from the axial data set by the technologist. Findings: Lack of intravenous contrast compromises evaluation of perfusion and for isodense lesions. Lower chest: Small bilateral pleural effusions, [id number]-left. Liver: Unremarkable Biliary system: Surgically absent gallbladder Spleen: Small calcified granulomas. Pancreas: Mildly atrophic. Adrenals: Unremarkable. Kidneys and ureters: No hydronephrosis. Punctate nonobstructing right renal calculi. Bowel: No obstruction. Bladder: Decompressed with a Bruno catheter Reproductive organs: No abnormal mass. Lymph nodes: Unremarkable. Peritoneum: Unremarkable Vessels: Patency not evaluated on this noncontrast study. Bones and soft tissue: Chronic appearing moderate L5 compression fracture deformity. Diffuse body wall anasarca. IMPRESSION: Small bilateral pleural effusions, [id number]-left. Diffuse body wall anasarca. Chronic appearing moderate L5 compression fracture deformity. Punctate nonobstructing right renal calculi. No hydronephrosis.
[2025-08-30] MEDS: VANCOMYCIN DOSE IV ONE (10:46)
--- NOTE | 2025-08-30 12:29 | PROGRESS NOTE ---
Progress Note Dictate Providers to CC ~ Progress Note: This is an elderly woman with advanced CKD, acute on chronic kidney injury, severe anemia, metabolic acidosis with hyperkalemia, hypoxic respiratory failure from COPD exacerbation, possible heart failure exacerbation, and suspected lower extremity cellulitis. She requires close monitoring of renal function, volume status, electrolytes, and respiratory status, with ongoing management of infection, anemia, and her chronic comorbidities. Antibiotic Ordered?: N/A Subjective Subjective No significant improvement since her admission, I believe her enal function is likely to be progression and not an VERN if we look back over the past 2 years. Objective Vitals Vital Signs Date Time Temp Pulse Resp B/P (MAP) Pulse Ox O2 Delivery O2 Flow Rate FiO2 08/30/25 11:20 82 18 Nasal Cannula 4.0 08/30/25 11:12 93 36 08/30/25 11:00 97.6 111/49 (69) Alert, confused RRR w/o murmur CTAB +BS, NT 2+ edema Lab Results: 08/30/25 0600 08/30/25 0600 Coagulation Studies Laboratory Tests Test 08/28/25 00:54 Prothrombin Time 10.4 SECONDS (9.0-12.0) INR International Normalized Ratio 1.0 INR Activated Partial Thromboplast Time 32 SECONDS (22-32) Fibrinogen 520 MG/DL (177-424) H D-Dimer 4.15 MG/L FEU (0-0.50) H D-Dimer Comment Coagulation Comments Coagulation Clinical Comments Other Results I & O 08/30/25 07:00 Intake Total 980 ml Output Total 700 ml Balance 280 ml Intake Oral 380 ml IV Total 300 ml Blood Product 300 ml Output Urine Total 700 ml Problem\Assessment\Plan Problems/Diagnosis: (1) Acute kidney injury superimposed on CKD Assessment & Plan: I will have a goals of care discussion with family toda and tomorrow, my recommendation is to offer palliative care/hospice Acute Kidney Injury (VERN) on Chronic Kidney Disease (CKD) Stage IV: No real improvement This 80-year-old woman with a baseline creatinine of 1.9 (CKD stage IV) now presents with a creatinine of 3.65 and oliguria (500 mL urine output since admission), consistent with VERN superimposed on CKD. The etiology is likely multifactorial, including possible prerenal azotemia from hypoperfusion (noting borderline hypotension and possible volume depletion from infection or diuresis), nephrotoxic exposure (vancomycin, cefepime), and possible cardiorenal syndrome given her heart failure history. There is no clear evidence of obstruction or post-renal cause. Plan: Monitor renal function and urine output closely, avoid further nephrotoxins, adjust all medications for renal dosing, maintain euvolemia, and consider renal ultrasound if obstruction is suspected. Monitor for indications for renal replacement therapy. 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 There is no mention of overt bleeding, and I see no signs. Plan: Transfuse packed red blood cells today to target hemoglobin >8 g/dL, monitor for transfusion reactions, and evaluate for underlying causes (iron studies, reticulocyte count, hemolysis labs if indicated). Continue to monitor hemoglobin and hematocrit. (3) Electrolyte abnormality Assessment & Plan: Electrolyte and Acid-Base Abnormalities: She has hyperkalemia (K 5.7), mild hyponatremia (Na 140), mild hyperchloremia (Cl 105), low bicarbonate (CO2 16), and metabolic acidosis. Her ABG shows pH 7.309, pCO2 24.6, HCO3 12.2, consistent with a primary high anion gap metabolic acidosis (likely uremic acidosis from VERN/CKD) with partial respiratory compensation. The potassium elevation is likely due to decreased renal excretion. Plan: Monitor potassium closely, initiate measures to lower potassium if >6 or with EKG changes (calcium gluconate, insulin/glucose, albuterol, sodium polystyrene, or dialysis if refractory), continue to monitor acid-base status, and consider bicarbonate therapy if acidosis worsens or if symptomatic. (4) Abnormal acid-base balance Assessment & Plan: See electrolyte above (5) Cellulitis (6) Cognitive decline Assessment & Plan: Cognitive Dysfunction: Her cognitive dysfunction complicates her history and management. She is a poor historian, and her provides collateral information. Plan: Continue to involve family in care, assess for delirium, and minimize polypharmacy and sedating medications. (7) COPD exacerbation Assessment & Plan: Hypoxic Respiratory Failure due to COPD Exacerbation: She is hypoxic (O2 sat 92% on 6 L nasal cannula, FiO2 44%) with a history of COPD and is being treated for an acute exacerbation. There is no evidence of infection (no fever, chills, cough, or sputum), but her respiratory status is tenuous. Plan: Continue supplemental oxygen, titrate to maintain O2 sat >88-92%, monitor for hypercapnia, continue bronchodilators and steroids as indicated, and monitor for signs of respiratory fatigue or need for noninvasive or invasive ventilation. V/Q scan is planned to rule out pulmonary embolism. (8) Diastolic heart failure Assessment & Plan: Heart Failure with Preserved Ejection Fraction (HFpEF): She has a history of HFpEF (EF 65-70%) and presents with lower extremity edema, which may be multifactorial (volume overload from VERN, heart failure exacerbation, or infection). Plan: Monitor volume status closely, avoid fluid overload, consider gentle diuresis if volume overloaded and if renal function allows, and monitor for signs of decompensated heart failure. Additional Plan I will have a goals of care discussion with family toda and tomorrow, my recommendation is to offer palliative care/hospice EVARISTO NUNES III, DO Aug 30, 2025 12:29
--- NOTE | 2025-08-30 15:37 | PROGRESS NOTE ---
Daily Progress Note Providers to CC ~ Antibiotic Timeout Antibiotic Ordered?: Yes Subjective The patient is is likely at her cognitive baseline however remains in restraints, her hemoglobin has stabilized. The patient is resistant to asking orientation questions she is oriented to herself however Objective Vital Signs Date Time Temp Pulse Resp B/P (MAP) Pulse Ox O2 Delivery O2 Flow Rate FiO2 08/30/25 15:25 77 18 95 Nasal Cannula* 4 36 08/30/25 11:00 97.6 111/49 (69) Result Diagram: 08/30/25 0600 08/30/25 0600 Gen. No acute distress lethargic Lungs clear to ascultation bilaterally, no wheezes rales or rhonchi appreciated Heart normal sinus rhythm no murmurs rubs or clicks noted Abdomen soft nontender bowel sounds are normoactive Lower extremities no clubbing cyanosis, trace edema bilaterally, significant erythema distally bilaterally Skin beefy red erythematous macules and papules coalescing into a plaque under the breast and superior abdominal region Coagulation Studies Laboratory Tests Test 08/28/25 00:54 Prothrombin Time 10.4 SECONDS (9.0-12.0) INR International Normalized Ratio 1.0 INR Activated Partial Thromboplast Time 32 SECONDS (22-32) Fibrinogen 520 MG/DL (177-424) H D-Dimer 4.15 MG/L FEU (0-0.50) H D-Dimer Comment Coagulation Comments Coagulation Clinical Comments Problem\Assessment\Plan # dementia with psychotic features PRN IM Geodon # acute on chronic respiratory failure # COPD # elevated D-dimer I discussed with the patient's of our concerns that the patient could have a pulmonary embolism however due the patient is acute kidney injury a CT angiogram is contraindicated- a V/Q scan has been ordered however the transportation refrigeration technician was concerned that is to obtain a V/Q scan radioactive nebulizer treatment is administered and that the patient is at high-risk of causing a radioactive contamination of the area and that is this is contraindicated as well Due the patient has a acute anemia requiring transfusion treating with a heparin drip or full-strength anticoagulation is contraindicated as well as the patient is receiving a transfusion at this time 08/29 has stabilized # normocytic anemia Hemoglobin dropped from 7.6-6.9 1 unit of packed red blood cells being transfused however the patient has IV blue during the transfusion and the patient has had multiple IVs blown a central line has been placed 08/29 hemoglobin improved from 6.9-7.1 after 1 unit was transfused of packed red blood cells this morning's hemoglobin was 6.9 the patient was transfused an additional unit of packed red blood cells and hemoglobin now is 8.4 08/30 hemoglobin remained stable # VERN likely secondary to vasomotor nephropathy poor p.o. intake # metabolic acidosis And a bicarb drip Baseline creatinine is around 1.5 Dr. Wills dairy lab technician is following the patient 08/29 metabolic acidosis has nearly resolved- kidney function is slightly worse change IV fluids to D5W at 100 cc an hour 08/30 renal ultrasound was nondiagnostic CT scan of the abdomen pelvis without contrast demonstrated a nonobstructive right renal calculi and no hydronephrosis present- renal function remains stable however unchanged # hyperkalemia IV calcium 1 g 10 units of insulin and amp of D50 Repeat lab is ordered 08/29 hyperkalemia has resolved serum potassium now is 4.5 # bdm-[id number]-rmejizmfk diabetes mellitus on the hyper and hypoglycemic protocol # tinea cruris IV fluconazole # bilateral lower extremity cellulitis IV cefepime and IV vancomycin Disposition: The patient lives with - who I spoke with on the and discussed if he wanted his to remain a full code I gingerly discuss this with the patient's at which time the patient is has been started to cry- and he informed me that he is crying his he feels hopeless that he can not take care of his like he previously could take care of her. I did not discuss code status any further as this is a very sensitive subject with the patient's 60 minutes of critical care time was spent treating the patient on 08/28/2025 Date of Service: Aug 30, 2025 Billing Provider: ROMY ORR DO Common Visit Codes: 87286-[id number] INP/OBS CARE(HIGH) ROMY ORR DO Aug 30, 2025 15:37
[2025-08-31] VITALS (16 sets, daily range): BP systolic 114–126; BP diastolic 58–63; PULSE 69–84; RESP 10–20; TEMP 97.5–98.3; O2SAT 93–97
[2025-08-31 09:54] LABS: MEAN PLATELET VOLUME 7.8 FL (7.4-10.4); RED CELL DISTRIBUTION WIDTH 20.0 % (11.5-14.5)
[2025-08-31 10:07] LABS: CREATININE 3.42 MG/DL (0.40-0.90); PHOSPHORUS 5.7 MG/DL (2.3-4.5); TOTAL CARBON DIOXIDE 23.5 MMOL/L (24-32); eCRCL 12 ML/MIN; eGFR 13 ML/MIN
[2025-08-31] MEDS: vancomycin/NS 1 GM ADD-VANTAGE 250 ML X 1 DOSE IV ONE (11:30)
--- NOTE | 2025-08-31 14:41 | PROGRESS NOTE ---
Progress Note Dictate Providers to CC ~ Antibiotic Ordered?: N/A Subjective Subjective Worsening renal function, poor prognosis Objective Vitals Vital Signs Date Time Temp Pulse Resp B/P (MAP) Pulse Ox O2 Delivery O2 Flow Rate FiO2 08/31/25 11:01 80 20 Nasal Cannula 4.0 08/31/25 10:55 95 36 08/31/25 06:00 97.6 114/62 (79) Alert confused RRR w/o murmur CTAB +BS, NT Lab Results: 08/31/25 0924 08/31/25 0924 Coagulation Studies Laboratory Tests Test 08/28/25 00:54 Prothrombin Time 10.4 SECONDS (9.0-12.0) INR International Normalized Ratio 1.0 INR Activated Partial Thromboplast Time 32 SECONDS (22-32) Fibrinogen 520 MG/DL (177-424) H D-Dimer 4.15 MG/L FEU (0-0.50) H D-Dimer Comment Coagulation Comments Coagulation Clinical Comments Advance Care Planning Advanced Care planning: Add on additional 30 min Problem\Assessment\Plan Problems/Diagnosis: (1) Acute kidney injury superimposed on CKD Assessment & Plan: Worsening function, poor prognosis Acute Kidney Injury (VERN) on Chronic Kidney Disease (CKD) Stage IV: No real improvement This 80-year-old woman with a baseline creatinine of 1.9 (CKD stage IV) now presents with a creatinine of 3.65 and oliguria (500 mL urine output since admission), consistent with VERN superimposed on CKD. The etiology is likely multifactorial, including possible prerenal azotemia from hypoperfusion (noting borderline hypotension and possible volume depletion from infection or diuresis), nephrotoxic exposure (vancomycin, cefepime), and possible cardiorenal syndrome given her heart failure history. There is no clear evidence of obstruction or post-renal cause. Plan: Monitor renal function and urine output closely, avoid further nephrotoxins, adjust all medications for renal dosing, maintain euvolemia, and consider renal ultrasound if obstruction is suspected. Monitor for indications for renal replacement therapy. 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
[2025-08-31] MEDS: HYDROmorphone inj. 0.5 MG/0.5 ML DISP.SYRIN IV PRN (19:15)
--- NOTE | 2025-08-31 20:16 | PROGRESS NOTE ---
Daily Progress Note Providers to CC ~ Antibiotic Timeout Antibiotic Ordered?: Yes Subjective Patient was seen in presence of patient's sister and her . Patient's current updated medical condition discussed with patient's sister and her in visit today I also discussed advanced care directive in they agreed for DNR DNI code status for now. We will re-evaluate patient in a.m.. Dr. Wills following the patient and consult note reviewed and agree with hospice care plan Objective Vital Signs Date Time Temp Pulse Resp B/P (MAP) Pulse Ox O2 Delivery O2 Flow Rate FiO2 08/31/25 19:15 14 08/31/25 15:20 76 Nasal Cannula 4.0 08/31/25 15:13 93 36 08/31/25 11:00 97.9 121/58 (79) Result Diagram: 08/31/2592308/31/25 0924 General-patient is chronically ill-appearing and lethargic HEENT-atraumatic normocephalic, neck supple without elevated JVD, No lymphadenopathy bilaterally. Eyes-no icterus or pallor seen in eyes Chest-decreased lung sounds to auscultation bilaterally, no crackles/ wheezing noticed . Heart-S1-S2 normal, regular heart rate no murmur Abdomen bowel sounds positive on auscultation, soft nondistended nontender no guarding, no rigidity Skin -put present over bilateral lower extremity. Neurology-patient is confused lethargic barely cooperated during physical exam Extremity- not able to move all 4 extremities Coagulation Studies Laboratory Tests Test 08/28/25 00:54 Prothrombin Time 10.4 SECONDS (9.0-12.0) INR International Normalized Ratio 1.0 INR Activated Partial Thromboplast Time 32 SECONDS (22-32) Fibrinogen 520 MG/DL (177-424) H D-Dimer 4.15 MG/L FEU (0-0.50) H D-Dimer Comment Coagulation Comments Coagulation Clinical Comments Problem\Assessment\Plan # dementia with psychotic features PRN IM Geodon # acute on chronic respiratory failure # COPD # elevated D-dimer Dr Armijo discussed with the patient's of our concerns that the patient could have a pulmonary embolism however due the patient is acute kidney injury a CT angiogram is contraindicated- a V/Q scan has been ordered however the master sonar technician was concerned that is to obtain a V/Q scan radioactive nebulizer treatment is administered and that the patient is at high-risk of causing a radioactive contamination of the area and that is this is contraindicated as well Due the patient has a acute anemia requiring transfusion treating with a heparin drip or full-strength anticoagulation is contraindicated as well as the patient is receiving a transfusion at this time 08/29 has stabilized # normocytic anemia Hemoglobin dropped from 7.6-6.9 1 unit of packed red blood cells being transfused however the patient has IV blue during the transfusion and the patient has had multiple IVs blown a central line has been placed 08/29 hemoglobin improved from 6.9-7.1 after 1 unit was transfused of packed red blood cells this morning's hemoglobin was 6.9 the patient was transfused an additional unit of packed red blood cells and hemoglobin now is 8.4 08/30 hemoglobin remained stable # VERN likely secondary to vasomotor nephropathy poor p.o. intake # metabolic acidosis And a bicarb drip Baseline creatinine is around 1.5 Dr. Wills hotel supplies salesperson is following the patient 08/29 metabolic acidosis has nearly resolved- kidney function is slightly worse change IV fluids to D5W at 100 cc an hour 08/30 renal ultrasound was nondiagnostic CT scan of the abdomen pelvis without contrast demonstrated a nonobstructive right renal calculi and no hydronephrosis present- renal function remains stable however unchanged # hyperkalemia IV calcium 1 g 10 units of insulin and amp of D50 Repeat lab is ordered 08/29 hyperkalemia has resolved serum potassium now is 4.5 # [id number] diabetes mellitus on the hyper and hypoglycemic protocol # tinea cruris IV fluconazole # bilateral lower extremity cellulitis IV cefepime and IV vancomycin Patient's current updated medical condition discussed with patient's sister and her in visit today I also discussed advanced care directive in they agreed for DNR DNI code status for now. We will re-evaluate patient in a.m.. Dr. Wills following the patient and consult note reviewed and agree with hospice care plan Date of Service: Aug 31, 2025 Billing Provider: LICO ROBLES MD Common Visit Codes: [id number] INP/OBS CARE(HIGH) LICO ROBLES MD Aug 31, 2025 20:16
[2025-09-01] VITALS (15 sets, daily range): BP systolic 106–176; BP diastolic 50–65; PULSE 64–80; RESP 9–20; TEMP 97.1–97.6; O2SAT 94–98
[2025-09-01] MEDS: ziprasidone IM 20mg inj **IM only IM PRN (00:58)
[2025-09-01] MEDS: bisacodyl 10mg suppository rectal RC STA (04:33)
[2025-09-01 08:19] LABS: MEAN PLATELET VOLUME 7.8 FL (7.4-10.4); RED CELL DISTRIBUTION WIDTH 19.8 % (11.5-14.5)
[2025-09-01] MEDS: methylPREDNISolone sod succ/PF 40mg inj. IV SCH (08:22)
[2025-09-01] MEDS: pantoprazole 40mg Tablet.DR PO SCH (08:24)
[2025-09-01 08:31] LABS: CREATININE 3.33 MG/DL (0.40-0.90); PHOSPHORUS 6.4 MG/DL (2.3-4.5); TOTAL CARBON DIOXIDE 21.5 MMOL/L (24-32); eCRCL 12 ML/MIN; eGFR 13 ML/MIN
[2025-09-01] MEDS: ondansetron/PF 4mg/2ml inj IV PRN (10:30)
[2025-09-01] MEDS: morphine 10mg/0.5ml (conc. morphine) oral syringe PO PRN (14:33)
--- NOTE | 2025-09-01 17:33 | PROGRESS NOTE ---
Progress Note Dictate Providers to CC ~ Antibiotic Ordered?: N/A Subjective Subjective Worsening renal function, family discord over her code status and whether to transition to hospice. Objective Vitals Vital Signs Date Time Temp Pulse Resp B/P (MAP) Pulse Ox O2 Delivery O2 Flow Rate FiO2 09/01/25 16:26 16 09/01/25 15:34 64 Nasal Cannula 4.0 09/01/25 15:27 95 36 09/01/25 15:00 97.6 106/54 (71) course rales, does not respond to voice or stimuli, tachypnea Lab Results: 09/01/25 0800 09/01/25 0800 Coagulation Studies Laboratory Tests Test 08/28/25 00:54 Prothrombin Time 10.4 SECONDS (9.0-12.0) INR International Normalized Ratio 1.0 INR Activated Partial Thromboplast Time 32 SECONDS (22-32) Fibrinogen 520 MG/DL (177-424) H D-Dimer 4.15 MG/L FEU (0-0.50) H D-Dimer Comment Coagulation Comments Coagulation Clinical Comments Problem\Assessment\Plan Problems/Diagnosis: (1) Acute kidney injury superimposed on CKD Assessment & Plan: Worsening function, poor prognosis, I have nothing more to offer her other than comfort, and symptom management. Acute Kidney Injury (VERN) on Chronic Kidney Disease (CKD) Stage IV: No real improvement This 80-year-old woman with a baseline creatinine of 1.9 (CKD stage IV) now presents with a creatinine of 3.65 and oliguria (500 mL urine output since admission), consistent with VERN superimposed on CKD. The etiology is likely multifactorial, including possible prerenal azotemia from hypoperfusion (noting borderline hypotension and possible volume depletion from infection or diuresis), nephrotoxic exposure (vancomycin, cefepime), and possible cardiorenal syndrome given her heart failure history. There is no clear evidence of obstruction or post-renal cause. Plan: Monitor renal function and urine output closely, avoid further nephrotoxins, adjust all medications for renal dosing, maintain euvolemia, and consider renal ultrasound if obstruction is suspected. Monitor for indications for renal replacement therapy. 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 EVARISTO NUNES III DO Sep 01, 2025 17:33
--- NOTE | 2025-09-01 19:20 | PROGRESS NOTE ---
Daily Progress Note Providers to CC ~ Antibiotic Timeout Antibiotic Ordered?: Yes Subjective Patient was seen in presence of her multiple family members today. Her is inclining towards hospice care in talking to hospice care nursing team today Objective Vital Signs Date Time Temp Pulse Resp B/P (MAP) Pulse Ox O2 Delivery O2 Flow Rate FiO2 09/01/25 16:26 16 09/01/25 15:34 64 Nasal Cannula 4.0 09/01/25 15:27 95 36 09/01/25 15:00 97.6 106/54 (71) Result Diagram: 09/01/25 0800 09/01/25 0800 General-patient is chronically ill-appearing and less lethargic HEENT-atraumatic normocephalic, neck supple without elevated JVD, No lymphadenopathy bilaterally. Eyes-no icterus or pallor seen in eyes Chest-decreased lung sounds to auscultation bilaterally, no crackles/ wheezing noticed . Heart-S1-S2 normal, regular heart rate no murmur Abdomen bowel sounds positive on auscultation, soft nondistended nontender no guarding, no rigidity Skin -sacral decubitus present on exam Neurology-patient is confused but less lethargic today , partially cooperated during physical exam Extremity- not able to move all 4 extremities Coagulation Studies Laboratory Tests Test 08/28/25 00:54 Prothrombin Time 10.4 SECONDS (9.0-12.0) INR International Normalized Ratio 1.0 INR Activated Partial Thromboplast Time 32 SECONDS (22-32) Fibrinogen 520 MG/DL (177-424) H D-Dimer 4.15 MG/L FEU (0-0.50) H D-Dimer Comment Coagulation Comments Coagulation Clinical Comments Problem\Assessment\Plan # dementia with psychotic features PRN IM Geodon # acute on chronic respiratory failure # COPD # elevated D-dimer Dr Armijo discussed with the patient's of our concerns that the patient could have a pulmonary embolism however due the patient is acute kidney injury a CT angiogram is contraindicated- a V/Q scan has been ordered however the software support technician was concerned that is to obtain a V/Q scan radioactive nebulizer treatment is administered and that the patient is at high-risk of causing a radioactive contamination of the area and that is this is contraindicated as well Due the patient has a acute anemia requiring transfusion treating with a heparin drip or full-strength anticoagulation is contraindicated as well as the patient is receiving a transfusion at this time 08/29 has stabilized # normocytic anemia Hemoglobin dropped from 7.6-6.9 1 unit of packed red blood cells being transfused however the patient has IV blue during the transfusion and the patient has had multiple IVs blown a central line has been placed 08/29 hemoglobin improved from 6.9-7.1 after 1 unit was transfused of packed red blood cells this morning's hemoglobin was 6.9 the patient was transfused an additional unit of packed red blood cells and hemoglobin now is 8.4 08/30 hemoglobin remained stable # VERN likely secondary to vasomotor nephropathy poor p.o. intake # metabolic acidosis And a bicarb drip Baseline creatinine is around 1.5 Dr. Wills lens grinder apprentice is following the patient 08/29 metabolic acidosis has nearly resolved- kidney function is slightly worse change IV fluids to D5W at 100 cc an hour 08/30 renal ultrasound was nondiagnostic CT scan of the abdomen pelvis without contrast demonstrated a nonobstructive right renal calculi and no hydronephrosis present- renal function remains stable however unchanged # hyperkalemia IV calcium 1 g 10 units of insulin and amp of D50 Repeat lab is ordered 08/29 hyperkalemia has resolved serum potassium now is 4.5 # [id number] diabetes mellitus on the hyper and hypoglycemic protocol # tinea cruris IV fluconazole # bilateral lower extremity cellulitis IV cefepime and IV vancomycin 08/31-Patient's current updated medical condition discussed with patient's sister and her in visit today I also discussed advanced care directive in they agreed for DNR DNI code status for now. We will re-evaluate patient in a.m.. Dr. Wills following the patient and consult note reviewed and agree with hospice care plan. 09/01-Patient was seen in presence of her multiple family members today. Her is inclining towards hospice care in talking to hospice care nursing team today. We will continue to follow patient in AM . Date of Service: Sep 01, 2025 Billing Provider: LICO ROBLES MD Common Visit Codes: [id number] INP/OBS CARE(HIGH) LICO ROBLES MD Sep 01, 2025 19:20
[2025-09-02] VITALS (17 sets, daily range): BP systolic 103–161; BP diastolic 39–50; PULSE 59–74; RESP 7–18; TEMP 97–97.7; O2SAT 92–100
[2025-09-02 06:05] LABS: MEAN PLATELET VOLUME 7.8 FL (7.4-10.4); RED CELL DISTRIBUTION WIDTH 18.9 % (11.5-14.5)
[2025-09-02 06:39] LABS: CREATININE 3.34 MG/DL (0.40-0.90); TOTAL CARBON DIOXIDE 20.1 MMOL/L (24-32)
[2025-09-02 06:40] LABS: PHOSPHORUS 7.6 MG/DL (2.3-4.5); eCRCL 12 ML/MIN; eGFR 13 ML/MIN
[2025-09-02 06:59] LABS: BANDS% (MANUAL) 2.0 % (0-10); ELLIPTOCYTES FEW; LARGE PLATELETS FEW; LYMPHOCYTES % (MANUAL) 5.0 % (21-51); METAMYLEOCYTES% (MANUAL) 1.0 % (0-0); MONOCYTES % (MANUAL) 7.0 % (2-12); NEUTROPHILS % (MANUAL) 85.0 % (42-75); NUCLEATED RED BLOOD CELLS 1 /100WBC (0-0); PLATELET ESTIMATE NORMAL
--- NOTE | 2025-09-02 20:09 | PROGRESS NOTE ---
Daily Progress Note Providers to CC ~ Antibiotic Timeout Antibiotic Ordered?: No Subjective Patient was seen in presence of patient's and oil field caser and nursing staff today. She was quite lethargic barely cooperated during physical exam. Patient is not making any progress. Patient's currently mentally not ready to take patient on hospice. business manager college or university in her trying to look for rehab facility for the patient. Follow the patient in a.m. Objective Vital Signs Date Time Temp Pulse Resp B/P (MAP) Pulse Ox O2 Delivery O2 Flow Rate FiO2 09/02/25 16:49 13 09/02/25 15:28 97.7 65 112/42 (65) 94 Nasal Cannula 5.0 09/02/25 15:19 40 Result Diagram: 09/02/25 0530 09/02/25 0530 General-patient is chronically ill-appearing and lethargic HEENT-atraumatic normocephalic, neck supple without elevated JVD, No lymphadenopathy bilaterally. Eyes-no icterus or pallor seen in eyes Chest-decreased lung sounds to auscultation bilaterally, no crackles/ wheezing noticed . Heart-S1-S2 normal, regular heart rate no murmur Abdomen bowel sounds positive on auscultation, soft nondistended nontender no guarding, no rigidity Skin -sacral decubitus present on exam Neurology-patient is confused and lethargic , barely cooperated during physical exam Extremity- not able to move all 4 extremities Coagulation Studies Laboratory Tests Test 08/28/25 00:54 Prothrombin Time 10.4 SECONDS (9.0-12.0) INR International Normalized Ratio 1.0 INR Activated Partial Thromboplast Time 32 SECONDS (22-32) Fibrinogen 520 MG/DL (177-424) H D-Dimer 4.15 MG/L FEU (0-0.50) H D-Dimer Comment Coagulation Comments Coagulation Clinical Comments Problem\Assessment\Plan # dementia with psychotic features PRN IM Geodon # acute on chronic respiratory failure # COPD # elevated D-dimer Dr Armijo discussed with the patient's of our concerns that the patient could have a pulmonary embolism however due the patient is acute kidney injury a CT angiogram is contraindicated- a V/Q scan has been ordered however the cardiac monitor technician was concerned that is to obtain a V/Q scan radioactive nebulizer treatment is administered and that the patient is at high-risk of causing a radioactive contamination of the area and that is this is contraindicated as well Due the patient has a acute anemia requiring transfusion treating with a heparin drip or full-strength anticoagulation is contraindicated as well as the patient is receiving a transfusion at this time 08/29 has stabilized # normocytic anemia Hemoglobin dropped from 7.6-6.9 1 unit of packed red blood cells being transfused however the patient has IV blue during the transfusion and the patient has had multiple IVs blown a central line has been placed 08/29 hemoglobin improved from 6.9-7.1 after 1 unit was transfused of packed red blood cells this morning's hemoglobin was 6.9 the patient was transfused an additional unit of packed red blood cells and hemoglobin now is 8.4 08/30 hemoglobin remained stable # VERN likely secondary to vasomotor nephropathy poor p.o. intake # metabolic acidosis And a bicarb drip Baseline creatinine is around 1.5 Dr. Wills breast worker is following the patient 08/29 metabolic acidosis has nearly resolved- kidney function is slightly worse change IV fluids to D5W at 100 cc an hour 08/30 renal ultrasound was nondiagnostic CT scan of the abdomen pelvis without contrast demonstrated a nonobstructive right renal calculi and no hydronephrosis present- renal function remains stable however unchanged # hyperkalemia IV calcium 1 g 10 units of insulin and amp of D50 Repeat lab is ordered 08/29 hyperkalemia has resolved serum potassium now is 4.5 # [id number] diabetes mellitus on the hyper and hypoglycemic protocol # tinea cruris IV fluconazole # bilateral lower extremity cellulitis IV cefepime and IV vancomycin 08/31-Patient's current updated medical condition discussed with patient's sister and her in visit today I also discussed advanced care directive in they agreed for DNR DNI code status for now. We will re-evaluate patient in a.m.. Dr. Wills following the patient and consult note reviewed and agree with hospice care plan. 09/01-Patient was seen in presence of her multiple family members today. Her is inclining towards hospice care in talking to hospice care nursing team today. We will continue to follow patient in AM . 09/02-Patient was seen in presence of patient's and oil field caser and nursing staff today. She was quite lethargic barely cooperated during physical exam. Patient is not making any progress. Patient's currently mentally not ready to take patient on hospice. business manager college or university in her trying to look for rehab facility for the patient. Follow the patient in a.m. Date of Service: Sep 02, 2025 Billing Provider: LICO ROBLES MD Common Visit Codes: [id number] INP/OBS CARE(HIGH) LICO ROBLES MD Sep 02, 2025 20:09
[2025-09-02] MEDS ORDERED: HYDROmorphone inj. 0.5 MG/0.5 ML DISP.SYRIN IV PRN (20:10)
[2025-09-02] MEDS: metoprolol tartrate 1mg/ml inj IV ONE (21:38)
[2025-09-03] VITALS (13 sets, daily range): BP systolic 97–107; BP diastolic 37–55; PULSE 59–78; RESP 9–16; TEMP 97.2–97.5; O2SAT 91–96
[2025-09-03 06:08] LABS: CREATININE 3.33 MG/DL (0.40-0.90); TOTAL CARBON DIOXIDE 21.5 MMOL/L (24-32); eCRCL 12 ML/MIN; eGFR 13 ML/MIN
[2025-09-03 06:10] LABS: MEAN PLATELET VOLUME 7.9 FL (7.4-10.4); RED CELL DISTRIBUTION WIDTH 19.1 % (11.5-14.5)
[2025-09-03] MEDS: normal saline 1000ml 1,000 ML IV SCH (09:51)
--- NOTE | 2025-09-03 19:55 | PROGRESS NOTE ---
Daily Progress Note Providers to CC ~ Antibiotic Timeout Antibiotic Ordered?: Yes Subjective We have detailed discussion done regarding patient's current declining condition and hospice care option. Granddaughter and patients agreed for hospice and code status changed today. As per social work case manager Esther " Transfer paperwork for tx to [facility] for comfort care has been signed/faxed and her pick time is 10:30 a.m. tomorrow Objective Vital Signs Date Time Temp Pulse Resp B/P (MAP) Pulse Ox O2 Delivery O2 Flow Rate FiO2 09/03/25 19:44 67 16 95 Nasal Cannula* 4 36 09/03/25 11:00 97.5 102/40 (60) Result Diagram: 09/03/25 0533 09/03/25 0533 General-patient is chronically ill-appearing and lethargic HEENT-atraumatic normocephalic, neck supple without elevated JVD, No lymphadenopathy bilaterally. Eyes-no icterus or pallor seen in eyes Chest-decreased lung sounds to auscultation bilaterally, no crackles/ wheezing noticed . Heart-S1-S2 normal, regular heart rate no murmur Abdomen bowel sounds positive on auscultation, soft nondistended nontender no guarding, no rigidity Skin -sacral decubitus present on exam Neurology-patient is confused and lethargic , barely cooperated during physical exam Extremity- not able to move all 4 extremities Coagulation Studies Laboratory Tests Test 08/28/25 00:54 Prothrombin Time 10.4 SECONDS (9.0-12.0) INR International Normalized Ratio 1.0 INR Activated Partial Thromboplast Time 32 SECONDS (22-32) Fibrinogen 520 MG/DL (177-424) H D-Dimer 4.15 MG/L FEU (0-0.50) H D-Dimer Comment Coagulation Comments Coagulation Clinical Comments Problem\\Assessment\\Plan # dementia with psychotic features PRN IM Geodon # acute on chronic respiratory failure # COPD # elevated D-dimer Dr Armijo discussed with the patient's of our concerns that the patient could have a pulmonary embolism however due the patient is acute kidney injury a CT angiogram is contraindicated- a V/Q scan has been ordered however the automobile technician was concerned that is to obtain a V/Q scan radioactive nebulizer treatment is administered and that the patient is at high-risk of causing a radioactive contamination of the area and that is this is contraindicated as well Due the patient has a acute anemia requiring transfusion treating with a heparin drip or full-strength anticoagulation is contraindicated as well as the patient is receiving a transfusion at this time 08/29 has stabilized # normocytic anemia Hemoglobin dropped from 7.6-6.9 1 unit of packed red blood cells being transfused however the patient has IV blue during the transfusion and the patient has had multiple IVs blown a central line has been placed 08/29 hemoglobin improved from 6.9-7.1 after 1 unit was transfused of packed red blood cells this morning's hemoglobin was 6.9 the patient was transfused an additional unit of packed red blood cells and hemoglobin now is 8.4 08/30 hemoglobin remained stable # VERN likely secondary to vasomotor nephropathy poor p.o. intake # metabolic acidosis And a bicarb drip Baseline creatinine is around 1.5 Dr. Wills mortgage loan funder is following the patient 08/29 metabolic acidosis has nearly resolved- kidney function is slightly worse change IV fluids to D5W at 100 cc an hour 08/30 renal ultrasound was nondiagnostic CT scan of the abdomen pelvis without contrast demonstrated a nonobstructive right renal calculi and no hydronephrosis present- renal function remains stable however unchanged # hyperkalemia IV calcium 1 g 10 units of insulin and amp of D50 Repeat lab is ordered 08/29 hyperkalemia has resolved serum potassium now is 4.5 # [id number] diabetes mellitus on the hyper and hypoglycemic protocol # tinea cruris IV fluconazole # bilateral lower extremity cellulitis IV cefepime and IV vancomycin 08/31-Patient's current updated medical condition discussed with patient's sister and her in visit today I also discussed advanced care directive in they agreed for DNR DNI code status for now. We will re-evaluate patient in a.m.. Dr. Wills following the patient and consult note reviewed and agree with hospice care plan. 09/01-Patient was seen in presence of her multiple family members today. Her is inclining towards hospice care in talking to hospice care nursing team today. We will continue to follow patient in AM . 09/02-Patient was seen in presence of patient's and social work case manager and nursing staff today. She was quite lethargic barely cooperated during physical exam. Patient is not making any progress. Patient's currently mentally not ready to take patient on hospice. [employer] manager in her trying to look for rehab facility for the patient. Follow the patient in a.m. 09/03- We have detailed discussion done regarding patient's current declining condition and hospice care option. Granddaughter and patients agreed for hospice and code status changed today. As per social work case manager Esther " Transfer paperwork for tx to [facility] for comfort care has been signed/faxed and her pick time is 10:30 a.m. tomorrow . Will Follow the patient in a.m. Date of Service: Sep 03, 2025 Billing Provider: LICO ROBLES MD Common Visit Codes: [id number] INP/OBS CARE(HIGH) LICO ROBLES MD Sep 03, 2025 19:55
[2025-09-03] MEDS ORDERED: diazepam inj 5 MG/ML inj. IV PRN (21:40)
[2025-09-03] MEDS: morphine 10mg/0.5ml (conc. morphine) oral syringe PO PRN (23:56)
[2025-09-04] MEDS: morphine 10mg/ml inj. IV PRN (01:04)
[2025-09-04 08:00] VITALS: RESP 15; O2SAT 91
[2025-09-04] MEDS: docusate sod 100mg capsule PO SCH (08:00)
--- NOTE | 2025-09-04 20:58 | DISCHARGE SUMMARY ---
Discharge Summary Providers to CC ~ Discharge Summary Admission Diagnosis: Chest pain w/ SOB Hospital Course DATE OF ADMISSION: 08/28/25 DATE OF DISCHARGE:09/04/25 Discharge Diagnosis\\Comment: # dementia with psychotic features # acute on chronic respiratory failure # COPD # elevated D-dimer # normocytic anemia # VERN likely secondary to vasomotor nephropathy poor p.o. intake # metabolic acidosis # hyperkalemia # [id number] diabetes mellitus # bilateral lower extremity cellulitis # tinea cruris # sacral decubitus wound Operations\\Procedures: None Consultants: Dr Wills Complications: None Condition on DC: Stable for transfer Discharge Summary: As per admitting provider's history and physical note" An 80 years old female with a past medical history of cognitive dysfunction, type 2 diabetes mellitus, hypertension, hyperlipidemia, CHFpEF 65-70% on 12/11/2023, thyroid disorder, history of sepsis from left leg cellulitis, Multifocal atrial tachycardia, Chronic obstructive pulmonary disease, s/p appendicectomy cholecystectomy and hysterectomy, who was brought in by EMS from her home for altered mental status and acute shortness of breaths today. Patient was confused but she is well orientated with baseline dementia status. She was to shortness of breaths to complete a full sentence and confused to pull out the lines. Patient only reported that she was unable to breathe and not feeling good but no idea what is wrong with her and stated that she is living with her . She stated that she was fully ambulatory and active lifestyle which should be reassessed based on her baseline dementia. She denies fever with chills and rigors, chest pain pressure/discomfort, coughing of the blood/sputum, abdominal pain, abnormal bowel and bladder movement except for progressive shortness of breath. She denies using oxygen at home. Furthermore questions should be obtained from the family members, who desires to place the patient under full code as per ER doctor" During hospitalization patient was treated for .# dementia with psychotic features PRN MACIEL Carmen # acute on chronic respiratory failure # COPD # elevated D-dimer Dr Armijo discussed with the patient's of our concerns that the patient could have a pulmonary embolism however due the patient is acute kidney injury a CT angiogram is contraindicated- a V/Q scan has been ordered however the bench technician was concerned that is to obtain a V/Q scan radioactive nebulizer treatment is administered and that the patient is at high-risk of causing a radioactive contamination of the area and that is this is contraindicated as well Due the patient has a acute anemia requiring transfusion treating with a heparin drip or full-strength anticoagulation is contraindicated as well as the patient is receiving a transfusion at this time 08/29 has stabilized # normocytic anemia Hemoglobin dropped from 7.6-6.9 1 unit of packed red blood cells being transfused however the patient has IV blue during the transfusion and the patient has had multiple IVs blown a central line has been placed 08/29 hemoglobin improved from 6.9-7.1 after 1 unit was transfused of packed red blood cells this morning's hemoglobin was 6.9 the patient was transfused an additional unit of packed red blood cells and hemoglobin now is 8.4 08/30 hemoglobin remained stable # VERN likely secondary to vasomotor nephropathy poor p.o. intake # metabolic acidosis And a bicarb drip Baseline creatinine is around 1.5 Dr. Wills nylon winder is following the patient 08/29 metabolic acidosis has nearly resolved- kidney function is slightly worse change IV fluids to D5W at 100 cc an hour 08/30 renal ultrasound was nondiagnostic CT scan of the abdomen pelvis without contrast demonstrated a nonobstructive right renal calculi and no hydronephrosis present- renal function remains stable however unchanged # hyperkalemia IV calcium 1 g 10 units of insulin and amp of D50 Repeat lab is ordered 08/29 hyperkalemia has resolved serum potassium now is 4.5 # [id number]-[id number]-tjlpauxrt diabetes mellitus on the hyper and hypoglycemic protocol # tinea cruris IV fluconazole # bilateral lower extremity cellulitis IV cefepime and IV vancomycin 08/31-Patient's current updated medical condition discussed with patient's sister and her in visit today I also discussed advanced care directive in they agreed for DNR DNI code status for now. We will re-evaluate patient in a.m.. Dr. Wills following the patient and consult note reviewed and agree with hospice care plan. 09/01-Patient was seen in presence of her multiple family members today. Her is inclining towards hospice care in talking to hospice care nursing team today. We will continue to follow patient in AM . 09/02-Patient was seen in presence of patient's and case mgr and nursing staff today. She was quite lethargic barely cooperated during physical exam. Patient is not making any progress. Patient's currently mentally not ready to take patient on hospice. learning and development manager in her trying to look for rehab facility for the patient. Follow the patient in a.m. /- We have detailed discussion done regarding patient's current declining condition and hospice care option. Granddaughter and patients agreed for hospice and code status changed today. As per case mgr Esther " Transfer paperwork for tx to [facility] for comfort care has been signed/faxed and her pick time is 10:30 a.m. tomorrow . Will Follow the patient in a.m. Patient is seen and examined on the day of discharge. All questions and queries answered to the best of my professional medical knowledge. Patient is getting discharged to [facility] rehab on hospice today. learning and development manager involved in patient's discharge plan. General-patient is chronically ill-appearing and lethargic HEENT-atraumatic normocephalic, neck supple without elevated JVD, No lymphadenopathy bilaterally. Eyes-no icterus or pallor seen in eyes Chest-decreased lung sounds to auscultation bilaterally, no crackles/ wheezing noticed . 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
== END 2025-09-04 11:16 | DRG 291 ==
LOC: ER 23:32 → ED HOLD 08-28 02:27 → PCU 3S 08-28 04:10
PROVIDERS: ADMIT Internal Medicine; ATTEND Family Medicine
PROC: 02HV33Z Insertion of Infusion Device into Superior Vena Cava, Percutaneous Approach (ICD-10-PCS; principal; 2025-08-28)
PROC: B548ZZA Ultrasonography of Superior Vena Cava, Guidance (ICD-10-PCS; 2025-08-28)
PROC: 30233N1 Transfusion of Nonautologous Red Blood Cells into Peripheral Vein, Percutaneous Approach (ICD-10-PCS; 2025-08-28)
DX: I13.2 Hypertensive heart and chronic kidney disease with heart failure and with stage 5 chronic kidney disease, or end stage renal disease (principal); I50.33 Acute on chronic diastolic (congestive) heart failure; J96.21 Acute and chronic respiratory failure with hypoxia; N17.0 Acute kidney failure with tubular necrosis; N18.6 End stage renal disease; L03.115 Cellulitis of right lower limb; E87.20 Acidosis, unspecified; F03.92 Unspecified dementia, unspecified severity, with psychotic disturbance; L03.116 Cellulitis of left lower limb; J44.1 Chronic obstructive pulmonary disease with (acute) exacerbation; E11.22 Type 2 diabetes mellitus with diabetic chronic kidney disease; B35.6 Tinea cruris; E78.5 Hyperlipidemia, unspecified; E87.5 Hyperkalemia; S31.000A Unspecified open wound of lower back and pelvis without penetration into retroperitoneum, initial encounter; X58.XXXA Exposure to other specified factors, initial encounter; Y93.89 Activity, other specified; Y92.89 Other specified places as the place of occurrence of the external cause; Y99.8 Other external cause status; Z90.710 Acquired absence of both cervix and uterus; Z88.2 Allergy status to sulfonamides; Z88.1 Allergy status to other antibiotic agents; Z79.84 Long term (current) use of oral hypoglycemic drugs; Z79.899 Other long term (current) drug therapy; Z90.49 Acquired absence of other specified parts of digestive tract; I25.2 Old myocardial infarction; Z51.5 Encounter for palliative care; Z87.891 Personal history of nicotine dependence
CPT/HCPCS: 36415; 36430; 36600; 71045; 74170; 76770; 80048; 80053; 80061; 80202; 81001; 82570; 82803; 82948; 83036; 83605; 83735; 83880; 83930; 83935; 84100; 84145; 84300; 84443; 84484; 84540; 85007; 85008; 85018; 85025; 85027; 85379; 85384; 85610; 85651; 85730; 86885; 86900; 86901; 86920; 87040; 87081; 87207; 93005; 93306; 94640; 94760; 96365; 97161; 97530; 99291; A4615; A5200; A6213; A6222; A6223; A6446; A6449; C1751; C1758; G0378; J0612; J0692; J0696; J1171; J1450; J1644; J1815; J1938; J2270; J2274; J2405; J2470; J2919; J3360; J3373; J3375; J3486; J3490; J7030; J7040; J7070; P9016